=== PATIENT | female | born 1955 | race Caucasian/White ===

== ENCOUNTER 2017-02-17 10:34 | Observation (INO) | payer OTHER ==
[~2017-02-17] VITALS: Ht 157.5 cm; Wt 55.4 kg
[~2017-02-17 10:34] MED LIST: ATOR-22 PO; CLON0.5T3 PO; KLN5X PO; SENNTAB23 PO; TOPI100T20 PO; TYLER650 PO; VENL150C56 PO
[2017-02-17] MEDS ORDERED: SODIUM CHLORIDE 0.9% 1000ML 1,000 ML IV STA (10:59)
[2017-02-17] MEDS ORDERED: SODIUM CHLORIDE 0.9% 500ML 500 ML IV STA (10:59)
--- NOTE | 2017-02-17 11:07 | EMERGENCY ROOM VISIT NOTE ---
History Report prepared by Jill: Krysten Renee Under the Supervision of: Dr. Kaiden Wilson M.D. First contact with patient: 10:52 Chief Complaint: REFERRED BY DOCTOR Stated Complaint: SENT BY History of Present Illness The patient is a 61 year old female who presents to the Emergency Room with complaints of persistent weakness over the past several days. Per nursing notes , the patient has been complaining of chest pain, diaphoresis, shortness of breath, and right sided weakness. They note that the patient has been drooling. Nursing notes report that the patient has been in bed for the past two days and lost control of her bowels in her bed. Nursing notes additionally report nausea. Nursing notes report that the patient had taken nitroglycerin for her chest pain. The patient denies any excessive alcohol use. She states that she was just started on Klonopin. The patient reports a subjective fever and chills. She denies any vomiting. The patient states that she was at her PCP's office today and was sent to the emergency department for further evaluation and treatment. She reports a decrease in appetite, noting that she has not eaten since last Tuesday. She reports a history of a previous stroke in 2011. The patient denies taking any medication to overdose. She denies feeling dehydrated. Source of History: patient, nursing staff Onset: past several days Position: other (global) Quality: other (weakness) Timing: other (persistent) Associated Symptoms: + fevers, + chills, + diaphoresis, + neck pain, + chest pain, + SOB, + nausea, + back pain, No vomiting Note: Associated Symptoms: decrease in appetite Review of Systems See HPI for pertinent positives & negatives. A total of 10 systems reviewed and were otherwise negative. Past Medical & Surgical Medical Problems: (1) Anxiety (2) Arthritis (3) Bone spur removed from foot (4) CVA/TIA (5) Depression (6) GERD (gastroesophageal reflux disease) (7) History of back fracture (8) Hyperlipidemia (9) Kidney disease (10) Repair of cervical vertebra fracture (11) Syncope and collapse Family History Cancer FH: heart disease Hypertension Seizures Social History Smoking Status: Current Every Day Smoker Alcohol Use: none Marital Status: Housing Status: lives with family Occupation Status: disabled Current/Historical Medications Scheduled Clonazepam (Klonopin), 1 MG PO HS Diclofenac Sodium (Topical) (Voltaren 1% Top Gel), 2 GM EXT BID Estrogens, Conjugated (Premarin), 1 GM PV 2XWK Fluticasone Propionate (Nasal) (Flonase Allergy Relief), 2 SPRAYS MANUEL DAILY Gabapentin (Gabapentin), 300 MG PO BID Lisinopril (Lisinopril), 2.5 MG PO DAILY Sennosides-Docusate Sodium (Senokot S), 1 TAB PO HS Topiramate (Topamax), 50 MG PO DAILY Venlafaxine Hcl (Effexor Extended Rel), 150 MG PO DAILY Scheduled PRN Albuterol Hfa (Ventolin Hfa), 2 PUFFS INH Q6H PRN for SOB/Wheezing Alprazolam (Xanax), 1 TAB PO TID PRN for Anxiety Hydrocodone/Acetaminophen 5MG/325MG ([place] 5MG/325MG), 1 TABLET PO Q6 PRN for Pain Sumatriptan Succinate (Imitrex), 50 MG PO PRN PRN for Migraine Allergies Coded Allergies: Iodinated Diagnostic Agents (Verified Allergy, Severe, ANAPHYLAXIS, ) Physical Exam Vital Signs Date Time Temp Pulse Resp B/P (MAP) Pulse Ox O2 Delivery O2 Flow Rate FiO2 02/17/17 13:45 64 151/77 97 Room Air 02/17/17 12:13 62 02/17/17 12:02 Room Air 02/17/17 11:59 62 20 151/77 02/17/17 10:40 36.4 67 18 118/59 96 Room Air Physical Exam GENERAL: Patient is in no acute distress. HEENT: No acute trauma, normocephalic atraumatic, mucous membranes moist, no nasal congestion, no scleral icterus. NECK: No stridor, no adenopathy, no meningismus, trachea is midline. LUNGS: Clear to auscultation bilaterally, no wheeze, no rhonchi, breath sounds equal. HEART: Without murmurs gallops or rubs, regular rate and rhythm. ABDOMEN: Soft, nontender, bowel sounds positive, no hernias, no peritonitis. EXTREMITIES: No cyanosis or edema, full range of motion of all the joints without pain or difficulty, no signs for acute trauma. NEUROLOGIC: Oriented x 3, no acute motor or sensory deficits, no focal weakness. Extremity tremor noted, which is apparently baseline, no cerebellar deficits or pronator drift, no speech slur or facial droop. SKIN: Dark color to the skin. No rash, no jaundice, no diaphoresis. Medical Decision & Procedures ER Provider Diagnostic Interpretation: Radiology results as stated below per my review and radiologist interpretation: CHEST ONE VIEW PORTABLE HISTORY: 61 years-old Female chest pain COMPARISON: Portable chest radiograph 06/04/2013 TECHNIQUE: Portable upright AP view of the chest FINDINGS: Cardiomediastinal and hilar silhouettes are within normal limits. No pneumothorax, pleural effusion, focal airspace consolidation or overt pulmonary edema. The bones are grossly intact. IMPRESSION: No acute cardiopulmonary process. The above report was generated using voice recognition software. It may contain grammatical, syntax or spelling errors. Electronically signed by: Ross Galvez M.D. 02/17/2017 11:16 AM Dictated Date/Time: 02/17/2017 11:[address] CT DOSE: 537.48 mGy.cm HISTORY: Stroke TECHNIQUE: Multiaxial CT images of the head were performed without the use of intravenous contrast. Automated exposure control was utilized for this study. A dose lowering technique was utilized adhering to the principles of ALARA. Comparison: None. Findings: The paranasal sinuses and mastoid air cells are clear. The calvarium and skull base are intact. The ventricles and sulci are within normal limits. There is no mass, hematoma, midline shift, or acute infarct. Impression: No acute intracranial abnormality. Laboratory Results 02/17/17 11:16 Red Blood Count 4.20, Mean Corpuscular Volume 87.1, Mean Corpuscular Hemoglobin 29.8, Mean Corpuscular Hemoglobin Concent 34.2, Mean Platelet Volume 8.3, Neutrophils (%) (Auto) 53.7, Lymphocytes (%) (Auto) 34.6, Monocytes (%) (Auto) 7.2, Eosinophils (%) (Auto) 3.8, Basophils (%) (Auto) 0.5, Neutrophils # (Auto) 3.29, Lymphocytes # (Auto) 2.12, Monocytes # (Auto) 0.44, Eosinophils # (Auto) 0.23, Basophils # (Auto) 0.03 02/17/17 11:16 Test 02/17/17 11:16 02/17/17 11:30 02/17/17 13:37 White Blood Count 6.12 K/uL (4.8-10.8) Red Blood Count 4.20 M/uL (4.2-5.4) Hemoglobin 12.5 g/dL (12.0-16.0) Hematocrit 36.6 % (37-47) Mean Corpuscular Volume 87.1 fL (80-100) Mean Corpuscular Hemoglobin 29.8 pg (25-34) Mean Corpuscular Hemoglobin Concent 34.2 g/dl (32-36) Platelet Count 314 K/uL (130-400) Mean Platelet Volume 8.3 fL (7.4-10.4) Neutrophils (%) (Auto) 53.7 % Lymphocytes (%) (Auto) 34.6 % Monocytes (%) (Auto) 7.2 % Eosinophils (%) (Auto) 3.8 % Basophils (%) (Auto) 0.5 % Neutrophils # (Auto) 3.29 K/uL (1.4-6.5) Lymphocytes # (Auto) 2.12 K/uL (1.2-3.4) Monocytes # (Auto) 0.44 K/uL (0.11-0.59) Eosinophils # (Auto) 0.23 K/uL (0-0.5) Basophils # (Auto) 0.03 K/uL (0-0.2) RDW Standard Deviation 42.7 fL (36.4-46.3) RDW Coefficient of Variation 13.3 % (11.5-14.5) Immature Granulocyte % (Auto) 0.2 % Immature Granulocyte # (Auto) 0.01 K/uL (0.00-0.02) Prothrombin Time 10.3 SECONDS (9.0-12.0) Prothromb Time International Ratio 1.0 (0.9-1.1) Activated Partial Thromboplast Time 24.5 SECONDS (21.0-31.0) Partial Thromboplastin Ratio 0.9 Anion Gap 4.0 mmol/L (3-11) Est Creatinine Clear Calc Drug Dose 38.9 ml/min Estimated GFR () 56.5 Estimated GFR (Non- 48.7 BUN/Creatinine Ratio 12.0 (10-20) Calcium Level 9.1 mg/dl (8.5-10.1) Total Bilirubin 0.3 mg/dl (0.2-1) Direct Bilirubin 0.1 mg/dl (0-0.2) Aspartate Amino Transf (AST/SGOT) 16 U/L (15-37) Alanine Aminotransferase (ALT/SGPT) 18 U/L (12-78) Alkaline Phosphatase 85 U/L (45-117) Total Creatine Kinase 85 U/L (26-192) Creatine Kinase MB 1.5 ng/ml (0.5-3.6) Creatine Kinase MB Ratio 1.8 (0-3.0) Troponin I < 0.015 ng/ml (0-0.045) Total Protein 7.1 gm/dl (6.4-8.2) Albumin 3.7 gm/dl (3.4-5.0) Thyroid Stimulating Hormone (TSH) 1.470 uIu/ml (0.300-4.500) Free Thyroxine 0.92 ng/dl (0.80-1.60) Salicylates Level 2.8 mg/dl (2.8-20) Acetaminophen Level 4 ug/ml (10-30) Ethyl Alcohol mg/dL < 3.0 mg/dl (0-3) Urine Color YELLOW Urine Appearance CLEAR (CLEAR) Urine pH 5.0 (4.5-7.5) Urine Specific [place] 1.016 (1.000-1.030) Urine Protein NEG (NEG) Urine Glucose (UA) NEG (NEG) Urine Ketones NEG (NEG) Urine Occult Blood NEG (NEG) Urine Nitrite NEG (NEG) Urine Bilirubin NEG (NEG) Urine Urobilinogen NEG (NEG) Urine Leukocyte Esterase NEG (NEG) Bedside Glucose 93 mg/dl (70-90) Urine Opiates Screen POS (NEG) Urine Methadone, Qualitative NEG (NEG) Urine Barbiturates NEG (NEG) Urine Phencyclidine (PCP) Level NEG (NEG) Ur Amphetamine/Methamphetamine NEG (NEG) MDMA (Ecstasy) Screen NEG (NEG) Urine Benzodiazepines Screen NEG (NEG) Urine Cocaine Metabolite NEG (NEG) Urine Marijuana (THC) NEG (NEG) Laboratory results reviewed by me. Medications Administered Medications (Trade) Dose Ordered Sig/Rick Route Start Time Stop Time Status Last Admin Dose Admin Sodium Chloride 500 ml @ 999 mls/hr Q31M STAT IV 02/17/17 10:59 02/17/17 11:29 DC 02/17/17 11:33 999 MLS/HR Sodium Chloride 1,000 ml @ 200 mls/hr Q5H STAT IV 02/17/17 10:59 02/17/17 15:58 02/17/17 12:01 200 MLS/HR ECG Indication: weakness Rate (beats per minute): 65 Rhythm: sinus rhythm Findings: 1st degree AV block, nonspecific-ST abn (Lateral), other (old septal infarct) Comparison ECG Date: 03/01/14 Change: no significant change ED Course 1054: The patient was evaluated in room A2. A complete history and physical exam was performed. 1059: Ordered Sodium Chloride 1000 ml @ 200 mls/hr IV, Sodium Chloride 500 ml @ 999 mls/hr IV. 1234: I reevaluated the patient and she is resting. I discussed the exam findings with her and her family and I discussed the treatment plan. They verbalized complete understanding and agreement. The patient will be evaluated for further treatment. 1243: I discussed the patients case with Tad Johnson PA-C. She is going to evaluate the patient for further treatment. Medical Decision The patient is a 61 year old 61 who presents to the ED with complaints of weakness. Differential diagnoses considered include Stroke, psychosis, dehydration, electrolyte imbalance, anemia, infection, intracranial bleeding, UTI, liver or renal failure, cardiac ischemia, dysrhythmia, overdose. There is no leukocytosis or concerning anemia. No significant electrolyte abnormality, kidney failure or hepatitis. The patient appears to be in a euthyroid state. EKG shows a sinus rhythm with some older changes, no acute ischemia. EKG is unchanged compared to previous. Chest film does not show pneumonia or CHF. There was no mediastinal widening. Brain CT showed no acute bleed or mass effect. Urine tox showed opiates. Aspirin, Tylenol and alcohol levels were basically undetectable. Urinalysis does not show infection. On exam, the patient had some tremor and shakiness to her extremities but there was no focal neurologic deficit. No speech slurring or facial droop. She was awake and alert. She was not toxic, she was not febrile. The patient received IV saline, she has done well, she has been resting but is easily arousable. I cannot explain the change in mental status. She has been lying in bed for 2 days, she has lost her bowel continence in bed. She was seen by her primary care provider today and noted to be drooling. Right now, there are no focal neurologic findings. I do not feel comfortable with discharge home. I do think a further workup in the hospital is warranted. At this point, the cause for her mental status change is unclear. I did speak to the patient and to case management. The on-call hospitalist was consulted. Consults Time Called: 1240 Consulting Physician: Tad Johnson PA-C Returned Call: [phone] I discussed the patients case with Tad Johnson PA-C. She is going to evaluate the patient for further treatment. Impression Primary Impression: Change in mental status Additional Impression: Weakness Scribe Attestation The scribe's documentation has been prepared under my direction and personally reviewed by me in its entirety. I confirm that the note above accurately reflects all work, treatment, procedures, and medical decision making performed by me. Departure Information Dispostion Being Evaluated By Hospitalist Referrals Umesh Gabriel D.O. (PCP) Stroke History Time Last Known Well 2 days ago Stroke t-PA Criteria Reviewed Does NOT meet criteria for t-PA Reason t-PA Not Given Treatment not indicated Problem Qualifiers
--- NOTE | 2017-02-17 11:17 | DIAGNOSTIC IMAGING REPORT ---
CHEST ONE VIEW PORTABLE HISTORY: 61 years-old Female chest pain COMPARISON: Portable chest radiograph 06/04/2013 TECHNIQUE: Portable upright AP view of the chest FINDINGS: Cardiomediastinal and hilar silhouettes are within normal limits. No pneumothorax, pleural effusion, focal airspace consolidation or overt pulmonary edema. The bones are grossly intact. IMPRESSION: No acute cardiopulmonary process. The above report was generated using voice recognition software. It may contain grammatical, syntax or spelling errors. Electronically signed by: Ross Galvez M.D. 02/17/2017 11:16 AM Dictated Date/Time: 02/17/2017 11:15 AM
[2017-02-17 11:34] LABS: BASO % 0.5 %; BASO ABS # 0.03 K/uL (0-0.2); COMPLETE YES; EOS % 3.8 %; HEMATOCRIT 36.6 % (37-47); IG% 0.2 %; LYMPH % 34.6 %; LYMPH ABS # 2.12 K/uL (1.2-3.4); MEAN CELL VOLUME 87.1 fL (80-100); MEAN CORPUSCULAR HEMOGLOBIN 29.8 pg (25-34); MEAN CORPUSCULAR HGB CONC 34.2 g/dl (32-36); MEAN PLATELET VOLUME 8.3 fL (7.4-10.4); MONO % 7.2 %; NEUT % 53.7 %; PLATELET COUNT 314 K/uL (130-400); WHITE BLOOD COUNT 6.12 K/uL (4.8-10.8)
[2017-02-17 11:42] LABS: URINE APPEARANCE CLEAR (CLEAR); URINE BILIRUBIN NEG (NEG); URINE COLOR YELLOW; URINE NITRITE NEG (NEG); URINE SPECIFIC GRAVITY 1.016 (1.000-1.030); UROBILINOGEN NEG (NEG); ZZURINE CULT IF INDIC CATH NO
[2017-02-17 11:45] LABS: BLOOD UREA NITROGEN 14 mg/dl (7-18); CALCIUM 9.1 mg/dl (8.5-10.1); CARBON DIOXIDE 29 mmol/L (21-32); CHLORIDE 110 mmol/L (98-107); GLUCOSE 89 mg/dl (70-99); PARTIAL THROMBOPLASTIN RATIO 0.9; POTASSIUM 3.5 mmol/L (3.5-5.1); PROTHROMBIN TIME (PATIENT) 10.3 SECONDS (9.0-12.0); SODIUM 143 mmol/L (136-145)
[2017-02-17 11:46] LABS: MANUAL MICROSCOPIC REQUIRED? NO; REVIEW REQ? NO
--- NOTE | 2017-02-17 11:48 | DIAGNOSTIC IMAGING REPORT ---
HEAD CT NONCONTRAST CT DOSE: 537.48 mGy.cm HISTORY: Stroke symptoms. TECHNIQUE: Multiaxial CT images of the head were performed without the use of intravenous contrast. Automated exposure control was utilized for this study. A dose lowering technique was utilized adhering to the principles of ALARA. Comparison: Head CT 08/01/2012. Findings: The paranasal sinuses and mastoid air cells are clear. The calvarium and skull base are intact. The ventricles and sulci are within normal limits. There is no mass, hematoma, midline shift, or acute infarct. Small hypodensity within the left parietal periventricular white matter remains unchanged and likely represents microvascular ischemic change. Impression: No significant change compared to the prior study. No acute intracranial abnormality. Electronically signed by: Brad Lu M.D. 02/17/2017 11:58 AM Dictated Date/Time: 02/17/2017 11:47 AM
[2017-02-17 11:57] LABS: ALKALINE PHOSPHATASE 85 U/L (45-117); ALT/SGPT 18 U/L (12-78); AST/SGOT 16 U/L (15-37); CKMB/CK RATIO 1.8 (0-3.0); MAGNESIUM 2.3 mg/dl (1.8-2.4)
[2017-02-17 12:26] LABS: BENZODIAZEPINE, URINE NEG (NEG); COCAINE,URINE NEG (NEG); PHENCYCLIDINE, URINE NEG (NEG)
[2017-02-17] MEDS ORDERED: SUMA50TA15 PO (12:54)
[2017-02-17] MEDS ORDERED: CLON1TAB3 PO (12:54)
[2017-02-17] MEDS ORDERED: TPM/50 PO (12:54)
[2017-02-17] MEDS ORDERED: QUET1TAB30 PO (12:54)
[2017-02-17] MEDS ORDERED: HYDR-5688 PO (12:54)
[2017-02-17] MEDS ORDERED: VENL75CA PO (12:54)
[2017-02-17] MEDS ORDERED: EFFSR150 PO (12:56)
[2017-02-17] MEDS ORDERED: VNTHFA/IN INH (13:41)
[2017-02-17] MEDS ORDERED: DICL1GEL12 EXT (13:41)
[2017-02-17] MEDS ORDERED: LSN25 PO (13:41)
[2017-02-17] MEDS ORDERED: SENN-65 PO (13:41)
[2017-02-17] MEDS ORDERED: ALPR0.5T PO (13:41)
[2017-02-17] MEDS ORDERED: NRN300 PO (13:41)
[2017-02-17] MEDS ORDERED: FLUT0.15 NAE (13:41)
[2017-02-17] MEDS ORDERED: PRMVC PV (13:41)
[2017-02-17] MEDS ORDERED: IV FLUIDS COMPLETED PRN (14:30)
--- NOTE | 2017-02-17 14:43 | History and Physical ---
History & Physical Date & Time of Service: Feb 17, 2017 at 13:41 Chief Complaint: Sent By Primary Care Physician: Umesh Gabriel D.OAbiel History of Present Illness Source: patient, family (granddaughter at bedside), clinic records This is a 61 y/o female with PMH of HTN, HL, CKD stage III, panic disorder, PTSD , depression, psychosis, and other problems listed below who was sent to the ED by Dr. Keller for chest pain with subsequent syncope. Patient is a vague historian. Patient reports 6 days ago she had episode of chest pain, points to substernal area, lasting 10 minutes while in her home sorting jewelry. No heavy exertion before the episode. States she went onto the porch and fell to her knees crying. Denies SOB at that time. States her found her, but she was unable to speak because she was "about to pass out". Her gave one of his nitro tabs. States she subsequently "passed out" from Tuesday through Tuesday morning when she awoke (4 days ago). She told her not to call a physician because she did not want to come to the hospital. Pt states on awakening Tuesday she noticed right arm and leg weakness. Her granddaughter states from that time has slowed/ slurred speech, increased forgetfulness, possible increase in her chronic right arm tremor. Has chronic blurred vision without acute change. 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 States she is not eating well over past few days. Denies issues using the restroom. Pt was seen by Dr. Keller in clinic today and was sent to ER for further evaluation. Denies alcohol use. Admits to occasional marijuana use. Denies recent change in medication. States she is taking her meds as prescribed. Denies similar episodes in the past. Past Medical/Surgical History Medical Problems: (1) Anxiety Status: Chronic (2) Arthritis Status: Chronic (3) Bone spur removed from foot Status: Resolved (4) Cervical disc disease Status: Chronic (5) CKD (chronic kidney disease), stage III Status: Chronic (6) Depression Status: Chronic (7) GERD (gastroesophageal reflux disease) Status: Chronic (8) Hyperlipidemia Status: Chronic (9) Hypertension Status: Chronic (10) Kidney mass Status: Chronic (11) Psychosis Status: Chronic (12) PTSD (post-traumatic stress disorder) Status: Chronic (13) Syncope and collapse Status: Resolved Surgical Problems: (1) History of back surgery Status: Chronic (2) History of carpal tunnel surgery Status: Chronic (3) S/P cholecystectomy Status: Chronic Family History Cancer FH: heart disease Hypertension Seizures Stroke FATHER ( of CVA) Social History Smoking Status: Current Every Day Smoker (approximately 3/4 ppd) Alcohol Use: none Drug Use: marijuana Marital Status: Housing status: lives with significant other Occupational Status: employed Allergies Coded Allergies: Iodinated Diagnostic Agents (Verified Allergy, Severe, ANAPHYLAXIS, ) Home Medications Scheduled Clonazepam (Klonopin), 1 MG PO HS Diclofenac Sodium (Topical) (Voltaren 1% Top Gel), 2 GM EXT BID Estrogens, Conjugated (Premarin), 1 GM PV 2XWK Fluticasone Propionate (Nasal) (Flonase Allergy Relief), 2 SPRAYS MANUEL DAILY Gabapentin (Gabapentin), 300 MG PO BID Lisinopril (Lisinopril), 2.5 MG PO DAILY Sennosides-Docusate Sodium (Senokot S), 1 TAB PO HS Topiramate (Topamax), 50 MG PO DAILY Venlafaxine Hcl (Effexor Extended Rel), 150 MG PO DAILY Scheduled PRN Albuterol Hfa (Ventolin Hfa), 2 PUFFS INH Q6H PRN for SOB/Wheezing Alprazolam (Xanax), 1 TAB PO TID PRN for Anxiety Hydrocodone/Acetaminophen 5MG/325MG ([place] 5MG/325MG), 1 TABLET PO Q6 PRN for Pain Sumatriptan Succinate (Imitrex), 50 MG PO PRN PRN for Migraine Review of Systems Ten systems reviewed and negative except as noted in HPI. Physical Exam Vital Signs Date Time Temp Pulse Resp B/P (MAP) Pulse Ox O2 Delivery O2 Flow Rate FiO2 02/17/17 12:13 62 02/17/17 12:02 Room Air 02/17/17 11:59 62 20 151/77 02/17/17 10:40 36.4 67 18 118/59 96 Room Air General Appearance: WD/WN, no apparent distress, + pertinent finding ( granddaughter at bedside) Head: normocephalic, atraumatic Eyes: normal inspection, PERRL, EOMI, sclerae normal ENT: hearing grossly normal, pharynx normal Neck: supple, trachea midline Respiratory/Chest: lungs clear, normal breath sounds, no respiratory distress, no accessory muscle use Cardiovascular: regular rate, rhythm, no murmur Abdomen/GI: non tender, soft Back: normal inspection, + pertinent finding (no spinal tenderness) Extremities/Musculoskelatal: normal inspection, no pedal edema Neurologic/Psych: fruit packer II-XII nml as tested (facial movements symmetric. speech is slow but not dysarthric. ), no motor/sensory deficits, alert, oriented x 3, + pertinent finding (odd affect. tremor of right upper extremity upon intentional movement. ) Skin: normal color, warm/dry Diagnostics Laboratory Results Results Past 24 Hours Test 02/17/17 11:16 02/17/17 11:30 02/17/17 13:37 Range/Units White Blood Count 6.12 4.8-10.8 K/uL Red Blood Count 4.20 4.2-5.4 M/uL Hemoglobin 12.5 12.0-16.0 g/dL Hematocrit 36.6 37-47 % Mean Corpuscular Volume 87.1 80-100 fL Mean Corpuscular Hemoglobin 29.8 25-34 pg Mean Corpuscular Hemoglobin Concent 34.2 32-36 g/dl Platelet Count 314 130-400 K/uL Mean Platelet Volume 8.3 7.4-10.4 fL Neutrophils (%) (Auto) 53.7 % Lymphocytes (%) (Auto) 34.6 % Monocytes (%) (Auto) 7.2 % Eosinophils (%) (Auto) 3.8 % Basophils (%) (Auto) 0.5 % Neutrophils # (Auto) 3.29 1.4-6.5 K/uL Lymphocytes # (Auto) 2.12 1.2-3.4 K/uL Monocytes # (Auto) 0.44 0.11-0.59 K/uL Eosinophils # (Auto) 0.23 0-0.5 K/uL Basophils # (Auto) 0.03 0-0.2 K/uL RDW Standard Deviation 42.7 36.4-46.3 fL RDW Coefficient of Variation 13.3 11.5-14.5 % Immature Granulocyte % (Auto) 0.2 % Immature Granulocyte # (Auto) 0.01 0.00-0.02 K/uL Prothrombin Time 10.3 9.0-12.0 SECONDS Prothromb Time International Ratio 1.0 0.9-1.1 Activated Partial Thromboplast Time 24.5 21.0-31.0 SECONDS Partial Thromboplastin Ratio 0.9 Sodium Level 143 136-145 mmol/L Potassium Level 3.5 3.5-5.1 mmol/L Chloride Level 110 98-107 mmol/L Carbon Dioxide Level 29 21-32 mmol/L Anion Gap 4.0 3-11 mmol/L Blood Urea Nitrogen 14 7-18 mg/dl Creatinine 1.20 0.60-1.20 mg/dl Est Creatinine Clear Calc Drug Dose 38.9 ml/min Estimated GFR () 56.5 Estimated GFR (Non- 48.7 BUN/Creatinine Ratio 12.0 10-20 Random Glucose 89 70-99 mg/dl Calcium Level 9.1 8.5-10.1 mg/dl Magnesium Level 2.3 1.8-2.4 mg/dl Total Bilirubin 0.3 0.2-1 mg/dl Direct Bilirubin 0.1 0-0.2 mg/dl Aspartate Amino Transf (AST/SGOT) 16 15-37 U/L Alanine Aminotransferase (ALT/SGPT) 18 12-78 U/L Alkaline Phosphatase 85 45-117 U/L Total Creatine Kinase 85 26-192 U/L Creatine Kinase MB 1.5 0.5-3.6 ng/ml Creatine Kinase MB Ratio 1.8 0-3.0 Troponin I < 0.015 0-0.045 ng/ml Total Protein 7.1 6.4-8.2 gm/dl Albumin 3.7 3.4-5.0 gm/dl Thyroid Stimulating Hormone (TSH) 1.470 0.300-4.500 uIu/ml Free Thyroxine 0.92 0.80-1.60 ng/dl Salicylates Level 2.8 2.8-20 mg/dl Acetaminophen Level 4 10-30 ug/ml Ethyl Alcohol mg/dL < 3.0 0-3 mg/dl Urine Color YELLOW Urine Appearance CLEAR CLEAR Urine pH 5.0 4.5-7.5 Urine Specific [place] 1.016 1.000-1.030 Urine Protein NEG NEG Urine Glucose (UA) NEG NEG Urine Ketones NEG NEG Urine Occult Blood NEG NEG Urine Nitrite NEG NEG Urine Bilirubin NEG NEG Urine Urobilinogen NEG NEG Urine Leukocyte Esterase NEG NEG Bedside Glucose 93 70-90 mg/dl Urine Opiates Screen POS NEG Urine Methadone, Qualitative NEG NEG Urine Barbiturates NEG NEG Urine Phencyclidine (PCP) Level NEG NEG Ur Amphetamine/Methamphetamine NEG NEG MDMA (Ecstasy) Screen NEG NEG Urine Benzodiazepines Screen NEG NEG Urine Cocaine Metabolite NEG NEG Urine Marijuana (THC) NEG NEG Diagnostic Radiology HEAD CT NONCONTRAST CT DOSE: 537.48 mGy.cm HISTORY: Stroke symptoms. TECHNIQUE: Multiaxial CT images of the head were performed without the use of intravenous contrast. Automated exposure control was utilized for this study. A dose lowering technique was utilized adhering to the principles of ALARA. Comparison: Head CT 08/01/2012. Findings: The paranasal sinuses and mastoid air cells are clear. The calvarium and skull base are intact. The ventricles and sulci are within normal limits. There is no mass, hematoma, midline shift, or acute infarct. Small hypodensity within the left parietal periventricular white matter remains unchanged and likely represents microvascular ischemic change. Impression: No significant change compared to the prior study. No acute intracranial abnormality. CHEST ONE VIEW PORTABLE IMPRESSION: No acute cardiopulmonary process. 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 CUTTER SPUR, unclear etiology No focal deficit on examination CT head- no acute intracranial finding, + small hypodensity within the left parietal periventricular white matter remains unchanged and likely represents microvascular ischemic change EKG- sinus rhythm with 1st degree AV block- new; troponin negative; electrolytes WNL; TSH WNL; tox screen positive for opiates; CXR and UA unremarkable Prior brain MRI 06/2014 showed several foci of increased signal within periventricular and deep white matter regions primarily in region of optic radiations and occipital regions bilaterally, diagnostic considerations include chronic small vessel change of aging versus late onset demyelinating disorder Will monitor in telemetry, neuro checks, MRI brain combo Add aspirin 81 mg daily Hold opioids and psychiatric medications [facility] drug monitoring database queried- no issues identified, last Rx's filled were clonazepam (30 tabs filled 02/09) by Dr. Leal (psychiatrist) and hydrocodone-acetaminophen (45 tabs filled 12/27/16 and 02/06/2017) by Dr. Gabriel (PCP), and alprazolam ( 90 tabs filled 12/01/2016) by Dr. Leal HYPERTENSION BP is stable, hold lisinopril for now CKD STAGE III Creat is stable Avoid nephrotoxins DEPRESSION/ PANIC DISORDER/ PTSD Hold home psychiatric medications for now DVT PROPHYLAXIS Lovenox SQ FULL CODE DISPOSITION Observation to telemetry Follows with Dr. Umesh Gabriel for primary care Patient seen in collaboration with Dr. Gentile. Please see his addendum. I have seen and examined this patient with TYLER Carvalho and agree with her assessment and plan and would like to comment on the following: This is a 61 year old F with history mood disorders on several psych medications and pain medications with reported episode of 10 minute chest pain on Tuesday02/11/17 in her home while doing mildly strenuous activities and was able to ambulate outside of the house after experiencing the chest pain and then subsequently "passed out" which was witnessed by her who is not at bedside today. According to patient's story, she was then carried by her to her bed and she did not wake up until Tuesday02/13/17. She reports that her did not call for medical attention while she was passed out for 2 days. She woke up on Tuesday and noticing weakness of her right upper extremities such as having difficulties lifting her right arm to brush her hair. Does not report of headache or acute changes in her vision but reports that she has had poor vision chronically. She was then able to go to work for the next several days without further symptoms. She went to her primary care doctor and after explaining to her doctor of these events, her doctor advised her to go to the emergency room. CT head in the ED is negative for acute intracranial bleed or ischemia. On exam she has tremors of the right hand that she reports is chronic. There are no other focal neurological deficits. Heart rate is regular and lungs are clear to auscultation. Her speech is somewhat slow. Her daughter at bedside reports that patient's had problems with her memory before and that her speech is more slow recently than usual. Review of 2015 brain MRI with radiology interpretation of small vessel change of aging versus late onset demyelinating disorder. Review of EKG on admission shows NJ interval > 200 ms and may be new onset first degree heart block. Initial troponin negative It is unclear at this time whether patient may have had a cardiac event or neurological event especially since even took place days ago. Trending troponins is unlikely to be diagnostic at this time since patient is not having chest pain now. Will place on observation for telemetry monitoring in case there are arrhythmia's with serial EKGs in regards to trending NJ interval or QTC intervals. Will hold psychotropic medications that may prolong QTc. Will send for brain MRI to rule out stroke vs demyelinating disease. Other differentials include substance use as cause of syncope VTE Prophylaxis VTE Risk Assessment Done? Y/N: Yes Risk Level: Low
[2017-02-17 14:50] VITALS: O2SAT 100; Ht 157.5 cm; Wt 55.4 kg
[2017-02-17] MEDS ORDERED: ASPIRIN 81 MG CHEW PO STA (15:02)
[2017-02-17 15:46] VITALS: BP 143/67; PULSE 64; TEMP 36.3; O2SAT 99
[2017-02-17] MEDS ORDERED: GADAVIST IV PRN (17:30)
--- NOTE | 2017-02-17 17:45 | DIAGNOSTIC IMAGING REPORT ---
BRAIN COMBO CLINICAL HISTORY: 61 years-old Female presenting with syncope, TIAs, chest pain. TECHNIQUE: Multisequence, multiplanar MR imaging of the brain was performed before and after the administration of intravenous contrast. IV contrast: 5 mL of Gadavist. COMPARISON: CT head from 02/17/2017 and MRI brain from 07/15/2014. FINDINGS: Ventricles and sulci normal in size. Foci of abnormal T2/FLAIR hyperintensity in the subcortical white matter primarily in the parieto-occipital regions. This is unchanged from prior exam. No mass effect or midline shift. No hemorrhage or acute territorial infarct. No extra-axial fluid collection. T2 skull base flow voids preserved. No abnormal parenchymal enhancement. Bone marrow signal intensity within the calvarium within normal limits. IMPRESSION: 1. No acute intracranial abnormality. No abnormal enhancement. 2. Suspected chronic small vessel ischemic change, unchanged from prior exam. Electronically signed by: Keon Dowell M.D. 02/17/2017 5:44 PM Dictated Date/Time: 02/17/2017 5:39 PM
[2017-02-17 19:40] VITALS: BP 127/70; PULSE 84; TEMP 36.4; O2SAT 98
[2017-02-17 20:00] VITALS: O2SAT 98
[2017-02-17] MEDS: ENOXAPARIN 40 MG/0.4 ML SYR SQ SCH (20:46)
[2017-02-18] VITALS (7 sets, daily range): BP systolic 95–157; BP diastolic 56–95; PULSE 62–76; TEMP 36.7–37.1; O2SAT 97–100
[2017-02-18] MEDS: ASPIRIN 81 MG ECTAB PO SCH (08:01)
[2017-02-18] MEDS: NSS + 20MEQ KCL 1000ML 1,000 ML IV SCH ×2 (08:45→20:47)
--- NOTE | 2017-02-18 09:02 | ECHOCARDIOGRAM REPORT ---
*NOTICE TO RECEIVING LIBERTARIAN AGENCY This information is strictly Confidential and protected under [place] law. [place] law prohibits you from making any further disclosure of this information unless further disclosure is expressly permitted by the written consent of the person to whom it pertains or is authorized by law. A general authorization for the release of medical or other information is not sufficient for this purpose. Hospital accepts no responsibility if the information is made available to any other person, INCLUDING THE PATIENT. Interpretation Summary * Name: ARNULFO LEO Study Date: 02/18/2017 06:51 AM BP: 114/47 mmHg * Patient Location: [facility] HR: 61 * : 1955 (M/d/yyyy) Gender: Female Height: 62 in * Age: 61 yrs Ethnicity: CA Weight: 120 lb * Ordering Physician: Patti Carvalho * Referring Physician: Self, Referred * Performed By: Flori Easley RDCS * * Reason For Study: Syncope, rule out stroke * BSA: 1.5 m2 * The study was technically adequate. * There is no comparison study available. * -- Conclusions -- * Ejection Fraction = 50-55%. * The left ventricular wall motion is normal. * The interatrial septum is intact with no evidence for an atrial septal defect. * The aortic valve is trileaflet. * Mild to moderate aortic regurgitation. Procedure Details * A complete two-dimensional transthoracic echocardiogram was performed (2D, M-mode, Doppler and color flow Doppler). Left Ventricle * The left ventricle is normal in size. * There is no thrombus. * There is normal left ventricular wall thickness. * Ejection Fraction = 50-55%. * Left ventricular systolic function is normal. * The left ventricular wall motion is normal. Right Ventricle * The right ventricle is normal size. * The right ventricular systolic function is normal as assessed by tricuspid annular plane systolic excursion (TAPSE) (normal >1.5 cm). Atria * The left atrial size is normal. * Right atrial size is normal. * The interatrial septum is intact with no evidence for an atrial septal defect. * Injection of contrast documented no interatrial shunt. Mitral Valve * The mitral valve is normal. * There is no mitral valve stenosis. * There is trace mitral regurgitation. Tricuspid Valve * The tricuspid valve is normal. * There is no tricuspid stenosis. * There is trace tricuspid regurgitation. * Doppler findings do not suggest pulmonary hypertension. Aortic Valve * The aortic valve is trileaflet. * Aortic stenosis is absent. * Mild to moderate aortic regurgitation. Pulmonic Valve * The pulmonary valve is inadequately visualized, but the Doppler data is adequate for interpretation. * There is no pulmonic valvular stenosis. * Trace pulmonic valvular regurgitation. Great Vessels * The aortic root is normal size. Pericardium/Pleural * There is no pericardial effusion. Great Vessels * Normal inferior vena cava diameter and respiratory variation suggests normal central venous pressure. Left Ventricular Diastolic Function * Pulse wave TDI of the anterior and posterior mitral annulas demonstrates normal LV relaxation MMode 2D Measurements and Calculations IVSd 0.80 cm LVIDd 4.0 cm LVIDs 2.9 cm LVPWd 0.84 cm IVS/LVPW 0.95 FS 28.4 % EDV(Teich) 70.8 ml ESV(Teich) 31.6 ml EF(Teich) 55.4 % EDV(cubed) 64.9 ml ESV(cubed) 23.8 ml EF(cubed) 63.4 % LV mass(C)d 97.6 grams LV mass(C)dI 63.4 grams/m\S\2 SV(Teich) 39.2 ml SI(Teich) 25.5 ml/m\S\2 SV(cubed) 41.1 ml SI(cubed) 26.7 ml/m\S\2 Ao root diam 2.7 cm Ao root area 5.7 cm\S\2 LA dimension 2.7 cm asc Aorta Diam 3.0 cm LA/Ao 0.99 LVOT diam 2.0 cm LVOT area 3.0 cm\S\2 LVAd ap4 22.2 cm\S\2 LVLd ap4 7.2 cm EDV(MOD-sp4) 57.6 ml EDV(sp4-el) 58.0 ml LVAs ap4 14.2 cm\S\2 LVLs ap4 6.4 cm ESV(MOD-sp4) 27.8 ml ESV(sp4-el) 26.9 ml EF(MOD-sp4) 51.8 % EF(sp4-el) 53.6 % LVAd ap2 19.6 cm\S\2 LVLd ap2 7.0 cm EDV(MOD-sp2) 44.4 ml EDV(sp2-el) 46.7 ml LVAs ap2 12.5 cm\S\2 LVLs ap2 6.5 cm ESV(MOD-sp2) 20.6 ml ESV(sp2-el) 20.3 ml EF(MOD-sp2) 53.5 % EF(sp2-el) 56.4 % LVLd %diff -3.42 % EDV(MOD-bp) 50.4 ml LVLs %diff 2.1 % ESV(MOD-bp) 24.3 ml EF(MOD-bp) 51.7 % SV(MOD-sp4) 29.9 ml SI(MOD-sp4) 19.4 ml/m\S\2 SV(MOD-sp2) 23.8 ml SI(MOD-sp2) 15.5 ml/m\S\2 SV(MOD-bp) 26.1 ml SI(MOD-bp) 17.0 ml/m\S\2 SV(sp4-el) 31.1 ml SI(sp4-el) 20.2 ml/m\S\2 SV(sp2-el) 26.3 ml SI(sp2-el) 17.1 ml/m\S\2 Doppler Measurements and Calculations MV E max erick 56.6 cm/sec MV A max erick 63.6 cm/sec MV E/A 0.89 MV dec time 0.18 sec Ao V2 max 101.2 cm/sec Ao max PG 4.1 mmHg Ao max PG (full) 2.1 mmHg LISETH(V,A) 2.1 cm\S\2 LISETH(V,D) 2.1 cm\S\2 AI max erick 414.3 cm/sec AI max PG 68.7 mmHg AI dec slope 124.9 cm/sec\S\2 AI P1/2t 972.0 msec LV V1 max PG 2.0 mmHg LV V1 max 70.6 cm/sec PA V2 max 61.1 cm/sec PA max PG 1.5 mmHg PA acc slope 320.3 cm/sec\S\2 PA acc time 0.19 sec PI max erick 128.1 cm/sec PI max PG 6.6 mmHg PI dec slope 190.6 cm/sec\S\2 PI P1/2t 196.9 msec TR max erick 184.8 cm/sec PA pr(Accel) -4.33 mmHg
[2017-02-18] MEDS ORDERED: TOPIRAMATE 50 MG TAB PO ONE (12:30)
[2017-02-18] MEDS ORDERED: VENLAFAXINE HCL XR 150 MG CAPXR PO ONE (12:30)
[2017-02-18] MEDS ORDERED: HYDROCODONE/ACETAMOPHEN 5/325MG TAB PO PRN (12:30)
--- NOTE | 2017-02-18 13:00 | CARDIOLOGY CONSULTATION ---
DATE OF CONSULTATION: 02/18/2017 REASON FOR CONSULTATION: Chest discomfort. REFERRING PHYSICIAN: Dr. Lazara Garcia MD CHIEF COMPLAINT ON ADMISSION: Chest discomfort. HISTORY OF PRESENT ILLNESS: Ms. Dennis is a 61-year-old female, who presented to the Emergency Department with persistent weakness. She had been seen by her PCP, complaining of chest pain, diaphoresis, shortness of breath and right-sided weakness approximately 1 week ago. The patient is a poor historian. Her is present at bedside as well. He is also unclear on many of the details of history of present illness. 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 The pain was sharp and stabbing and became severe. She ran to her front porch, where she began to weep. She states that she ran past to her , who eventually walked out onto the porch. He gave the patient one nitroglycerin under her tongue. She then became extremely weak. She did not lose consciousness according to both the patient and her . He helped her to the couch, although she was able to support her weight. She states she was on the couch for several hours and fell asleep. She then returned to her bedroom in the evening and returned to the couch in the morning. She felt quite weak and fatigued over the next few days. There has been no recurrent chest discomfort. 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 She denies taking any extra pain medication or additional antianxiety medication listed below. Denies personal history of coronary artery disease, congestive heart failure, diabetes, rheumatic fever as a child, or peripheral vascular disease. Other symptoms she reports are weakness, positional lightheadedness, vertigo, neck discomfort, intermittent diaphoresis, intermittent chills, intermittent fevers, intermittent shortness of breath, intermittent nausea, and intermittent back pain. REVIEW OF SYSTEMS: The pertinent positives are noted above, comprehensive 10-system review is otherwise negative. PAST MEDICAL HISTORY: 1. Chronic cervical spine and thoracic spine pain, on chronic narcotic pain medication. 2. Anxiety disorder. 3. Arthritis. 4. ? TIA. 5. Depression. 6. GERD. 7. Spinal fracture. 8. Dyslipidemia. 9. CKD. 10. Syncope. PAST SURGICAL HISTORY: 1. Bone spur removal. 2. Spinal surgery. 3. Cervical spine surgery. FAMILY HISTORY: Negative for premature CAD or sudden cardiac . SOCIAL HISTORY: Current every day smoker. Occupation status listed as disabled; however, reports working at a truck stop. HOME MEDICATIONS: 1. Klonopin 1 mg at bedtime. 2. Voltaren topical gel twice daily. 3. Premarin ointment twice weekly. 4. Flonase 2 sprays daily. 5. Neurontin 300 mg twice daily. 6. Lisinopril 2.5 mg daily. 7. Senokot 1 tablet at bedtime. 8. Topamax 50 mg daily. 9. Effexor 150 mg daily. 10. Albuterol as needed. 11. Xanax t.i.d. as needed. 12. Hydrocodone/acetaminophen 1 tablet q. 6 hours as needed. 13. Imitrex 50 mg as needed for migraine. ALLERGIES: LISTED TO IODINATED CONTRAST AGENTS. ECG on admission, sinus rhythm with nonspecific ST-T wave abnormality. Unchanged when compared to prior study. Repeat ECG performed today also demonstrates nonspecific T-wave abnormality. Resting 2D transthoracic echo: Ejection fraction of 50%-55%, mild to moderate aortic regurgitation, intact interatrial septum, and no regional wall motion abnormalities. MRI of the brain: No acute intracranial abnormality, suspected chronic small vessel ischemic change. Finding unchanged compared to the prior study. Chest x-ray: No acute cardiopulmonary process. LABORATORY DATA: Cardiac enzymes are negative x2 sets. Sodium is 143, potassium 3.5, chloride 110, CO2 is 29, BUN is 14, and creatinine is 1.20. TSH is 1.470. LFTs within normal limits. White blood cell count 6.12, hemoglobin is 12.5, and platelet count is 314. INR is 1.0. Tox screen is positive for opiates. Telemetry monitoring demonstrates sinus rhythm, no sustained dysrhythmias. PHYSICAL EXAMINATION: VITAL SIGNS: Temperature is 36.7 degrees centigrade, pulse 65 beats per minute and regular, respiratory rate 16 breaths per minute, blood pressure 122/71 and SaO2 is 99% on room air. GENERAL: NAD, poor dentition, awake, alert and oriented x3. HEENT: Her mucous membranes are moist. There is no scleral icterus. Conjunctivae are pink. NECK: Supple. There is no JVD or HJR. No carotid bruit. HEART: Regular with a normal S1 and S2. There is no murmur, rub, or gallop. LUNGS: Clear. There are no rales, rhonchi, or wheeze. ABDOMEN: Soft and nontender. No rebound or guarding. Normal bowel sounds. EXTREMITIES: Warm and dry. There is no clubbing, cyanosis, or edema. NEUROLOGIC: Demonstrates no focal motor deficit. Cranial nerves are grossly intact. FINAL IMPRESSION: 1. A 61-year-old female presents with episode of atypical chest discomfort occurring 1 week ago. Cardiac enzymes within normal limits. There are no regional wall motion abnormalities on her resting 2D transthoracic echo. Chronic nonspecific ECG changes were stable compared to prior studies. The patient is chest pain free for 6 days. 2. Questionable near syncopal episode. 3. History of hypertension -- blood pressure is borderline hypotensive, lisinopril on hold. PLAN AND RECOMMENDATIONS: I had a long discussion with the patient regarding her isolated atypical episode of chest discomfort. Recommend pharmacologic, Lexiscan nuclear stress testing in the outpatient setting. She consumed an a.m. meal, therefore testing will not be completed on an inpatient basis at this time. Agree with the holding lisinopril and continue monitoring blood pressure. Consider polypharmacy as potential etiology of episode of near syncope. No other medication changes from a cardiovascular perspective. No further inpatient testing at this time. Thank you for allowing me to take part in the care of your patient. MICHELA
--- NOTE | 2017-02-18 20:26 | DIAGNOSTIC IMAGING REPORT ---
CERVICAL WITHOUT CONTRAST HISTORY: 61 years-old Female chronic neck pain with radiation into the right upper extremity. Associated numbness. Follow-up exam. COMPARISON: CT cervical spine 07/15/2014 TECHNIQUE: Multiplanar multisequence MRI of the cervical spine was obtained without contrast. FINDINGS: The large [id number] localizer images demonstrate no gross abnormality of the head, neck or thorax. The imaged posterior fossa structures are within normal limits. Modic type I endplate changes are present at C5-C6. No acute compression deformity, fracture or marrow replacing process. The imaged paraspinal structures demonstrate no acute abnormality. The axial images are motion degraded which limits the study. Partial bony fusion is again seen at C2-C3 with focal kyphotic curvature redemonstrated at this interspace. There is effacement of the ventral thecal sac at T2-T3 without significant central canal narrowing. Mild uncovertebral spurring is also present. C3-C4: Mild intervertebral disc space narrowing with broad based posterior disc bulge, facet arthropathy and uncovertebral spurring without significant central canal or foraminal narrowing. Unchanged. C4-C5: Moderate intervertebral disc space narrowing with broad-based posterior disc bulge and right lateral recess disc osteophyte complex formation, slightly progressed in the interval. Additionally, there is facet arthrosis and uncovertebral spurring. There is mild central canal, moderate right lateral recess and moderate right foraminal narrowing. Mild left foraminal narrowing is present. These findings have slightly progressed from comparison. C5-C6: Mild to moderate intervertebral disc space narrowing and facet arthrosis is noted in conjunction with broad-based posterior disc bulge. Disc osteophyte complex formation of the left lateral recess causes mild left lateral recess and moderate left foraminal narrowing. There is effacement of the ventral thecal sac without high-grade central canal narrowing. Right foramen is generally patent. Mild progression from prior study. C6-C7: Mild intervertebral disc space narrowing with left lateral recess/foraminal disc osteophyte complex formation causing moderate left lateral recess and moderate left foraminal narrowing. Right foramen is generally patent. Please note that this level is very motion degraded. C7-T1: No central canal or foraminal narrowing. IMPRESSION: 1. Limited study secondary to patient motion. 2. Within the limitations of the exam, there is progression of discogenic degenerative changes at the C4-C5 and C5-C6 levels. At C4-C5, there is resultant mild central canal, moderate right lateral recess and moderate right foraminal narrowing. 3. At C5-C6 degenerative changes cause effacement of the ventral thecal sac with mild left lateral recess and moderate left foraminal narrowing. 4. Partial bony fusion at C2-C3, unchanged. The above report was generated using voice recognition software. It may contain grammatical, syntax or spelling errors. Electronically signed by: Ross Galvez M.D. 02/18/2017 8:25 PM Dictated Date/Time: 02/18/2017 8:13 PM
--- NOTE | 2017-02-18 20:30 | Progress Note ---
Medicine Progress Note Date & Time of Visit: Feb 18, 2017 at 20:25. Subjective seen with at bedside states she feels better denies chest pain, dyspnea, palpitations, dizziness denies right sided weakness but does report chronic neck pain radiating to the right arm no other symptoms Objective Last 8 Hrs Date Time Temp Pulse Resp B/P (MAP) Pulse Ox O2 Delivery O2 Flow Rate FiO2 02/18/17 20:00 36.9 74 16 122/74 (90) 97 Room Air 02/18/17 20:00 Room Air 02/18/17 16:00 Room Air Physical Exam: General- oriented x 3, not in distress, speaks in sentences with no effort Head- atraumatic Eyes- EOMI, anicteric Neck- supple, no JVD, no adenopathy (+) poor ROM due to pain mild tenderness on the posterior aspect Lungs- clear breath sounds bilaterally Heart- regular rhythm; no murmur, no murmurs Abdomen- normal bowel sounds, soft, nontender, no masses or hepatosplenomegaly Extremities- no pretibial edema, no calf tenderness; peripheral pulses intact Neuro- alert, oriented x 3; PERRL, EOMI; no facial palsy; no dysarthria; motor 5 /5 bilaterally; sensation 100% on all ext (+) right arm mild tremor: chronic per patient Skin- warm & dry Laboratory Results: Last 24 Hours Test 02/18/17 09:04 Troponin I < 0.015 ng/ml Assessment & Plan EPISODE OF CHEST PAIN/ POSSIBLE SYNCOPE with subsequent RIGHT SIDED WEAKNESS Episode occurred several days [employer], unclear etiology No focal deficit on examination CT head- no acute intracranial finding, + small hypodensity within the left parietal periventricular white matter remains unchanged and likely represents microvascular ischemic change EKG- sinus rhythm with 1st degree AV block- new; troponin negative; electrolytes WNL; TSH WNL; tox screen positive for opiates; CXR and UA unremarkable Prior brain MRI 06/2014 showed several foci of increased signal within periventricular and deep white matter regions primarily in region of optic radiations and occipital regions bilaterally, diagnostic considerations include chronic small vessel change of aging versus late onset demyelinating disorder -- MRI Brain no acute findings will order MRI cervical spine to r/o nerve compression -- Cardiology consulted recommend outpatient stress test HYPERTENSION BP is stable, hold lisinopril for now CKD STAGE III Creat is stable DEPRESSION/ PANIC DISORDER/ PTSD resume usual medications DVT PROPHYLAXIS Lovenox SQ FULL CODE DISPOSITION pending PT OT ordered Current Inpatient Medications: Current Inpatient Medications Medications (Trade) Dose Ordered Sig/Rick Route Start Time Stop Time Status Last Admin Dose Admin Aspirin (Ecotrin Tab) 81 mg DAILY PO 02/18/17 09:00 03/20/17 08:59 02/18/17 08:01 81 MG Miscellaneous (Iv Fluids Completed) 1 ea PRN PRN N/A 02/17/17 14:30 02/17/18 14:29 Enoxaparin Sodium (Lovenox Inj) 40 mg Q24H SQ 02/17/17 21:00 03/19/17 20:59 02/17/17 20:46 40 MG Gadobutrol (Gadavist) 5 mmol UD PRN IV 02/17/17 17:30 02/21/17 17:29 Potassium Chloride/Sodium Chloride 1,000 ml @ 75 mls/hr [id number] IV 02/18/17 07:45 03/20/17 07:44 02/18/17 08:45 75 MLS/HR Clonazepam (Klonopin Tab) 1 mg HS PO 02/18/17 21:00 03/20/17 20:59 Gabapentin (Neurontin Cap) 300 mg BID PO 02/18/17 21:00 03/20/17 20:59 Acetaminophen/ Hydrocodone Bitart ([place] 5/325 Tab) 1 tab Q6 PRN PO 02/18/17 12:30 03/04/17 12:29 Topiramate (Topamax Tab) 50 mg DAILY PO 02/19/17 09:00 03/21/17 08:59 Venlafaxine HCl (effeXOR EXTENDED REL CAP) 150 mg DAILY PO 02/19/17 09:00 03/21/17 08:59
[2017-02-18] MEDS: GABAPENTIN 300 MG CAP PO SCH (20:46)
[2017-02-18] MEDS: ENOXAPARIN 40 MG/0.4 ML SYR SQ SCH (20:47)
[2017-02-18] MEDS ORDERED: CLONAZEPAM 1 MG TAB PO SCH (21:00)
[2017-02-19] VITALS: O2SAT 98
[2017-02-19 04:00] VITALS: BP 112/67; PULSE 61; TEMP 36.7; O2SAT 100; O2SAT 98
[2017-02-19 08:00] VITALS: O2SAT 100
[2017-02-19 08:06] VITALS: BP_SYST 120; BP_SYST 131; BP_SYST 143; BP_DIAS 78; BP_DIAS 81; BP_DIAS 82; PULSE 61; TEMP 36.3; O2SAT 100
[2017-02-19] MEDS: ASPIRIN 81 MG ECTAB PO SCH (08:20)
[2017-02-19] MEDS: GABAPENTIN 300 MG CAP PO SCH (08:21)
[2017-02-19] MEDS ORDERED: VENLAFAXINE HCL XR 150 MG CAPXR PO SCH (09:00)
[2017-02-19] MEDS ORDERED: TOPIRAMATE 50 MG TAB PO SCH (09:00)
[2017-02-19] MEDS ORDERED: CEFUROXIME AXETIL 250 MG TAB PO SCH ×2 (09:00→21:00)
[2017-02-19] MEDS: NSS + 20MEQ KCL 1000ML 1,000 ML IV SCH (09:06)
[2017-02-19 11:52] VITALS: BP 124/78; PULSE 74; TEMP 36.8; O2SAT 99
[2017-02-19] MEDS ORDERED: CEFUROXIME AXETIL 250 MG TAB PO ONE (13:40)
--- NOTE | 2017-02-19 13:49 | Progress Note ---
Medicine Progress Note Date & Time of Visit: Feb 19, 2017 at 13:43. Subjective patient seen resting in bed, brighter states she feels better today denies recurrence of chest pain neck pain is improved, no right sided weakness reports some dysuria, specks of blood in her urine, no fever/chills/back pain/ nausea denies any other new symptoms states she is back to her baseline, ambulates with no problems no other symptoms ] Objective Last 8 Hrs Date Time Temp Pulse Resp B/P (MAP) Pulse Ox O2 Delivery O2 Flow Rate FiO2 02/19/17 12:00 Room Air 02/19/17 11:52 36.8 74 16 124/78 (93) 99 Room Air 02/19/17 08:06 36.3 61 18 143/82 (102) 100 131/81 (98) 120/78 (92) 02/19/17 08:00 100 Room Air 02/19/17 08:00 Room Air Physical Exam: General- oriented x 3, not in distress, speaks in sentences with no effort Eyes- anicteric Neck- supple, no JVD better ROM Lungs- clear breath sounds bilaterally, no rales/wheezes Heart- regular rhythm; no murmur, no murmurs Abdomen- normal bowel sounds, soft, nontender Extremities- no pretibial edema, no calf tenderness; peripheral pulses intact Neuro- alert, oriented x 3; no gross focal deficits Skin- warm & dry Laboratory Results: Date/Time Source Procedure Growth Status 02/19/17 04:05 Urine , Clean Catch Urine Culture Pending Received Assessment & Plan EPISODE OF ATYPICAL CHEST PAIN/ POSSIBLE SYNCOPE RIGHT SIDED WEAKNESS, likely from CERVICAL RADICULOPATHY, CERVICALGIA -- Episode occurred several days [employer], unclear etiology No focal deficit on examination CT head- no acute intracranial finding, + small hypodensity within the left parietal periventricular white matter remains unchanged and likely represents microvascular ischemic change EKG- sinus rhythm with 1st degree AV block- new; troponin negative; electrolytes WNL; TSH WNL; tox screen positive for opiates; CXR and UA unremarkable Prior brain MRI 06/2014 showed several foci of increased signal within periventricular and deep white matter regions primarily in region of optic radiations and occipital regions bilaterally, diagnostic considerations include chronic small vessel change of aging versus late onset demyelinating disorder -- MRI Brain no acute findings MRI cervical spine: IMPRESSION: 1. Limited study secondary to patient motion. 2. Within the limitations of the exam, there is progression of discogenic degenerative changes at the C4-C5 and C5-C6 levels. At C4-C5, there is resultant mild central canal, moderate right lateral recess and moderate right foraminal narrowing. 3. At C5-C6 degenerative changes cause effacement of the ventral thecal sac with mild left lateral recess and moderate left foraminal narrowing. 4. Partial bony fusion at C2-C3, unchanged. -- Acute Coronary Syndrome ruled out Cardiology consulted- Dr. Atkins recommend outpatient Lexiscan stress test -- consider referral to Pain Management or Ortho for cervicalgia DYSURIA -- possible early UTI -- also reports specks of blood in the Urine -- UA unremarkable -- empiric Cefuroxime 250mg po BID HYPERTENSION BP is stable resume Lisinopril CKD STAGE III Crea stable DEPRESSION/ PANIC DISORDER/ PTSD resume usual medications DVT PROPHYLAXIS Lovenox SQ FULL CODE DISPOSITION d/c home today ff up with PCP in 3-5 days Current Inpatient Medications: Current Inpatient Medications Medications (Trade) Dose Ordered Sig/Rick Route Start Time Stop Time Status Last Admin Dose Admin Aspirin (Ecotrin Tab) 81 mg DAILY PO 02/18/17 09:00 03/20/17 08:59 02/19/17 08:20 81 MG Miscellaneous (Iv Fluids Completed) 1 ea PRN PRN N/A 02/17/17 14:30 02/17/18 14:29 Enoxaparin Sodium (Lovenox Inj) 40 mg Q24H SQ 02/17/17 21:00 03/19/17 20:59 02/18/17 20:47 40 MG Gadobutrol (Gadavist) 5 mmol UD PRN IV 02/17/17 17:30 02/21/17 17:29 Potassium Chloride/Sodium Chloride 1,000 ml @ 75 mls/hr [id number] IV 02/18/17 07:45 03/20/17 07:44 02/19/17 09:06 75 MLS/HR Clonazepam (Klonopin Tab) 1 mg HS PO 02/18/17 21:00 03/20/17 20:59 02/18/17 20:47 1 MG Gabapentin (Neurontin Cap) 300 mg BID PO 02/18/17 21:00 03/20/17 20:59 02/19/17 08:21 300 MG Acetaminophen/ Hydrocodone Bitart ([place] 5/325 Tab) 1 tab Q6 PRN PO 02/18/17 12:30 03/04/17 12:29 Topiramate (Topamax Tab) 50 mg DAILY PO 02/19/17 09:00 03/21/17 08:59 02/19/17 08:20 50 MG Venlafaxine HCl (effeXOR EXTENDED REL CAP) 150 mg DAILY PO 02/19/17 09:00 03/21/17 08:59 02/19/17 09:04 150 MG Cefuroxime Axetil (Ceftin Tab) 250 mg BID PO 02/19/17 09:00 02/24/17 08:59 02/19/17 09:04 250 MG
[2017-02-19] MEDS ORDERED: CFT250 PO (13:53)
[2017-02-19] MEDS ORDERED: ASPEC81 PO (13:53)
--- NOTE | 2017-02-19 14:00 | Discharge Instructions ---
Discharge Instructions Date of Service Feb 19, 2017. Admission Reason for Admission: Syncope And Collapse Discharge Discharge Diagnosis / Problem: ATYPICAL CHEST PAIN Discharge Goals Goal(s): Diagnostic testing, Therapeutic intervention Activity Recommendations Activity Limitations: as noted below (NO HEAVY EXERTION UNTIL RE-EVALUATED BY PRIMARY CARE PHYSICIAN) Lifting Limitations: until after follow-up appointment Exercise/Sports Limitations: until after follow-up appointment . Instructions / Follow-Up Instructions / Follow-Up PLEASE REVIEW YOUR NEW MEDICATION LIST AND FOLLOW INSTRUCTIONS CAREFULLY. CALL PRIMARY CARE PHYSICIAN OR RETURN TO ER IMMEDIATELY IF WITH RECURRENCE OF SYMPTOMS, BLOOD IN THE URINE, FEVER/CHILLS, ABDOMINAL/BACK PAIN. FOLLOW UP WITH PRIMARY CARE PHYSICIAN DR. JEAN (ASSOCIATE OF DR. NAJERA) ON TuesdayFEBRUARY 222016 AT 12:55PM. Current Hospital Diet Patient's current hospital diet: Regular Diet Discharge Diet Recommended Diet: AHA Diet (Heart Healthy) Procedures Procedures Performed: MRI OF THE CERVICAL SPINE Pending Studies Studies pending at discharge: no Medical Emergencies . Who to Call and When: Medical Emergencies: If at any time you feel your situation is an emergency, please call 911 immediately. . Non-Emergent Contact Non-Emergency issues call your: Primary Care Provider Call Non-Emergent contact if: you have a fever, your pain is not controlled, your pain is worsening, you have any medication questions ( ) . . "Provider Documentation" section prepared by Tom Callahan. . VTE Core Measure Inpt VTE Proph given/why not?: [facility]CD's [place] Drug Monitoring Program Search Results: patient reviewed within database, no issues identified
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
[2017-02-19 14:17] VITALS: BP 124/78; PULSE 74; TEMP 36.8; O2SAT 99
[2017-02-19 21:41] LABS: COD UR NEGATIVE NG/ML (CUTOFF=50); HYDROCOD UR 395 NG/ML (CUTOFF=50); HYDROMOR UR NEGATIVE NG/ML (CUTOFF=50); MORPHINE UR NEGATIVE NG/ML (CUTOFF=50); NORHYDROCODONE CONF UR 3110 NG/ML (CUTOFF=50); OXYMORPH UR NEGATIVE NG/ML (CUTOFF=50)
== END 2017-02-19 15:11 | disposition home or self-care (01) ==
LOC: C.EDB 10:35 → C.MED 13:37 → ENRESERV 14:33
PROVIDERS: ADMIT Hospitalist; ATTEND Internal Medicine
DX: R07.89 Other chest pain (principal); R53.1 Weakness; R55 Syncope and collapse; K21.9 Gastro-esophageal reflux disease without esophagitis; I12.9 Hypertensive chronic kidney disease with stage 1 through stage 4 chronic kidney disease, or unspecified chronic kidney disease; N18.3 Chronic kidney disease, stage 3 (moderate); F43.10 Post-traumatic stress disorder, unspecified; R30.0 Dysuria; F32.9 Major depressive disorder, single episode, unspecified; Z79.899 Other long term (current) drug therapy; E78.5 Hyperlipidemia, unspecified; F17.200 Nicotine dependence, unspecified, uncomplicated; Z90.49 Acquired absence of other specified parts of digestive tract; Z86.73 Personal history of transient ischemic attack (TIA), and cerebral infarction without residual deficits; Z82.49 Family history of ischemic heart disease and other diseases of the circulatory system; Z82.3 Family history of stroke

== ENCOUNTER → 2017-07-25 | Outpatient (CLI) | payer OTHER ==
[~2017-07-25] MED LIST changes: +ALPR0.5T PO; +ASPEC81 PO; -ATOR-22 PO; +CFT250 PO; -CLON0.5T3 PO; +CLON1TAB3 PO; +EFFSR150 PO; +FLUT0.15 NAE; +HYDR-5688 PO; -KLN5X PO; +LSN25 PO; +NRN300 PO; +PRMVC PV; +SENN-65 PO; -SENNTAB23 PO; -TOPI100T20 PO; +TPM/50 PO; -TYLER650 PO; -VENL150C56 PO; +VNTHFA/IN INH
--- NOTE | 2017-07-25 11:48 | DIAGNOSTIC IMAGING REPORT ---
RENAL ULTRASOUND CLINICAL HISTORY: Renal neoplasm. Lower back pain. COMPARISON STUDY: CT of the abdomen and pelvis June 04, 2013 and MRI of the abdomen May 26, 2016. TECHNIQUE: Sonography of the kidneys and the urinary bladder was performed. FINDINGS: The right kidney measures 9.5 x 4.1 x 3.6 cm and the left measures 10.3 x 4.5 x 4.4 cm. There is no right hydronephrosis. There has been interval development of mild left hydronephrosis of indeterminate etiology. Both ureteral jets were identified. The previously described right renal lesion may be visualized on this exam. This may correspond to a 1 cm echogenic lesion shown on this exam. If so, this lesion is similar to prior MRI of May 26, 2016 when allowing for differences in technique. Incidental note is made of an echogenic right hepatic lobe lesion shown to represent hemangiomas on prior MRI. IMPRESSION: 1. Interval development of mild left hydronephrosis of indeterminate etiology. 2. 1 cm echogenic right renal lesion. While not definitive, this likely reflects the previously described lesion and if so, is unchanged since earlier studies. Electronically signed by: Paulie Baron M.D. 07/25/2017 11:47 AM Dictated Date/Time: 07/25/2017 11:40 AM
== END | disposition home or self-care (01) ==
LOC: C.ULTR 10:48
PROVIDERS: ATTEND Urology
DX: D49.519 Neoplasm of unspecified behavior of unspecified kidney (principal); M54.5 Low back pain

== ENCOUNTER → 2017-09-05 | Outpatient (CLI) | payer OTHER ==
--- NOTE | 2017-09-05 10:21 | DIAGNOSTIC IMAGING REPORT ---
CT SCAN OF THE ABDOMEN AND PELVIS WITHOUT IV CONTRAST CLINICAL HISTORY: Renal neoplasm. COMPARISON STUDY: Abdominal CT dated 06/04/2013. Abdominal MRI dated 05/26/2016. Renal ultrasound dated 07/25/2017. TECHNIQUE: CT scan of the abdomen and pelvis is performed from the lung bases to the proximal femora. Images are reviewed in the axial, sagittal, and coronal planes. IV contrast was not administered for this examination. Note that the examination is suboptimal without IV contrast. A dose lowering technique was utilized adhering to the principles of ALARA. CT DOSE: 335.67 mGycm FINDINGS: Lung bases: The heart is normal in size and without pericardial effusion. The lung bases are clear. Liver: The unenhanced liver is normal in size, contour, and attenuation. There is no intrahepatic biliary ductal dilatation. A 3.1 cm low-attenuation lesion in the right hepatic lobe seen on image #75 is unchanged over multiple prior studies. This was previously characterized as a benign hemangioma. Gallbladder: Surgically absent noting clips in the gallbladder fossa. Spleen: Normal in size and attenuation. Pancreas: Unremarkable. Adrenal glands: Unremarkable. Kidneys: The unenhanced kidneys demonstrate mild cortical atrophy and are without hydronephrosis. There are no renal calculi identified. A 9 mm fat attenuation lesion in the interpolar right kidney is unchanged from 2013 and consistent with a small angiomyolipoma. A 1.4 cm indeterminant contour deforming lesion is seen in the right upper pole on image #111. Small renal cysts identified on prior studies are not visualized without IV contrast. Abdominal vasculature: The abdominal aorta is normal in course and caliber noting mild to moderate atherosclerotic calcification. Bowel: There are scattered colonic diverticula without CT evidence of acute diverticulitis. No bowel obstruction is seen. The appendix is well-visualized and normal. Peritoneum: There is no intraperitoneal free air or abdominal ascites. There is a small fat-containing umbilical hernia. Lymphadenopathy: None. Pelvic viscera: The bladder, uterus, and adnexa are normal as visualized. Skeletal structures: The skeletal structures are osteopenic. There is minimal lumbosacral spondylosis. A bone island is again noted in the left ilium. No lytic or blastic lesions are seen. IMPRESSION: 1. There is unchanged appearance of a 1.4 cm contour deforming lesion in the mid to upper pole of the right kidney dating back to at least 2012. This was shown to demonstrate postcontrast enhancement on prior examinations. A low-grade neoplasm is not excluded. 2. 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 3. Additional findings as above. Electronically signed by: Kaiden Elizabeth M.D. 09/05/2017 10:20 AM Dictated Date/Time: 09/05/2017 10:09 AM
== END | disposition home or self-care (01) ==
LOC: C.CTS 09:35
PROVIDERS: ATTEND Urology
DX: D49.519 Neoplasm of unspecified behavior of unspecified kidney (principal)

== ENCOUNTER 2022-03-22 09:12 | Observation (INO) ==
[2022-03-22] MEDS ORDERED: SODIUM CHLORIDE 0.9% 1000ML 1,000 ML IV SCH (09:45)
[2022-03-22] MEDS ORDERED: SODIUM CHLORIDE 0.9% 500 ML IV SCH (09:45)
[2022-03-22] MEDS ORDERED: DEXTROSE 50% 50 ML SYRINGE IV ONE (09:53)
[2022-03-22] MEDS ORDERED: ONDANSETRON INJ 2 MG/ML 2 ML VIAL IV STA (09:53)
--- NOTE | 2022-03-22 09:58 | XRay Report ---
XR chest 1V portable HISTORY: 66 years-old Female weakness acute weakness COMPARISON: Chest radiograph 11/23/2019. TECHNIQUE: Portable AP view of the chest FINDINGS: Cardiomediastinal and hilar silhouettes are within normal limits. No pneumothorax, pleural effusion, airspace consolidation or overt pulmonary edema. Degenerative changes of the shoulders and spine. Vineet gical clips of the right upper quadrant abdomen. IMPRESSION: No acute process. ACT 112: Negative or not required by law. The above report was generated using voice recognition software. It may contain grammatical, syntax o r spelling errors. Electronically signed by: Kole Galvez M.D. 03/22/2022 9:57 AM
[2022-03-22 10:21] LABS: Basophils # (auto) 0.06 K/uL (0-0.2); Basophils % (auto) 0.6 %; Eosinophils # (auto) 0.18 K/uL (0-0.50); Eosinophils % (auto) 1.9 %; Hematocrit (blood only) 39.4 % (34.1-44.9); Hemoglobin 13.8 g/dl (12.0-16.0); Immature Granulocytes # (auto) 0.05 K/uL (0.00-0.02); Immature Granulocytes % (auto) 0.5 %; Lymphocytes % (auto) 20.1 %; Mean Corpuscular Hemoglobin 29.2 pg (25.0-34.0); Mean Corpuscular Volume 83.3 fL (80.0-100.0); Monocytes # (auto) 0.75 K/uL (0.24-0.82); Monocytes % (auto) 7.9 %; Platelet Count 437 K/uL (130-400); RDW Coefficient of Variation 13.3 % (11.5-14.5); RDW Standard Deviation 40.4 fL (36.4-46.3); Red Blood Count 4.73 M/uL (3.93-5.22); White Blood Count 9.44 K/ul (4.8-10.8)
[2022-03-22 10:44] LABS: Albumin Globulin Ratio 1.5 (0.9-2); Albumin Level 4.1 gm/dl (3.4-5.0); BUN Creatinine Ratio 8.9 (10-20); Bilirubin,Total 0.5 mg/dl (0.2-1.0); Calcium 9.9 mg/dl (8.5-10.1); Creatinine Clr Calc Pharmacy 35.6 ml/min; Est GFR (African American) 52.9 ml/min; Est GFR (Non-African American) 45.7 ml/min; Globulin 2.7 gm/dl (2.5-4.0); Magnesium 1.9 mg/dl (1.7-2.4); Potassium 2.8 mmol/L (3.5-5.1); Total Protein 6.8 gm/dl (6.0-8.3)
[2022-03-22 10:48] LABS: Troponin I High Sensitivity 6.1 pg/ml (0-14)
[2022-03-22] MEDS ORDERED: POTASSIUM CHLORIDE / WTR 10 MEQ/100 ML PLCT IV ONE ×2 (10:55→16:46)
--- NOTE | 2022-03-22 11:49 | Emergency Department Note ---
Impression & Plan Generalized weakness, Nausea, Hypokalemia, Hypoglycemia, Abdominal pain, lower ED Provider Note INFORMANT: Patient ED PROVIDER(S): Bishnu Christopher MD CHIEF COMPLAINT: Illness PLAN: Disposition: Admitted Condition: Good Outpatient prescription management: none Referral: None MEDICAL DECISION MAKING: Patient presented with a week long illness that consisted of nausea and diarrhea. She was feeling dizzy. She had no appetite. She had an IV established and was hydrated. She was treated with Zofran. She was found to be hypoglycemic and was given IV dextrose. The patient was also found to be hypokalemic on laboratory testing and this was corrected with IV potassium. Patient underwent CT imaging and was found to have a nonspecific colitis. She had an unremarkable CBC and troponin. Stool studies were ordered. Given the patient's decline and poor results treatment as an outpatient I discussed further management in the hospital. Patient and family feel comfortable. [facility] Patient was evaluated in the ER and admitted for further management Triage Nursing notes reviewed and agree them. Vital Signs: reviewed and remarkable for no significant abnormalities Differential diagnosis: Infection, dehydration, metabolic abnormality, hypo/hyperglycemia, electrolyte d isturbance, anemia, hypoxia, cardiac sources, intracerebral event, toxicologic, neurologic, as well as other pathologies. Diagnostics interpreted by me: ECG: Twelve-lead ECG reveals a sinus rhythm at 72 bpm. Poor baseline data present. Septal Q wave present. Nonspecific ST abnormality. There is possible T wave inversion laterally. No ST elevation appreciated. Cardiac Monitoring: Cardiac monitoring ordered by me: The patient was placed on continuous cardiac monitoring and observed. It revealed a normal sinus rhythm at 75 beats per minute without ectopy or evidence of dysrhythmia. Imaging studies: Chest x-ray. Findings: A chest x-ray was performed and revealed no pneumothorax, effusion, infiltrate, pulmonary edema, free air under the diaphragm, or wide mediastinum. Impression: No acute disease. CT scan as noted below HPI: The patient is a 66year old female who presents to the Emergency Room with complaints of illness. This started last week and is worsening. The patient also notes the following associated symptoms, generalized weakness, lower abdominal pain, feeling dizzy, poor appetite. Patient was seen by primary physician. Patient states a CT scan was performed because she was having the lower abdominal pain and was told that she had diverticulitis. The patient has been prescribed metronidazole for relieving factors. Current pain is rated as 0/10. Pt denies LOC, headache, fevers, chills, diaphoresis, visual changes, neck pain, chest pain, breathing difficulties, vomiting, back pain, melena, hematochezia, urinary symptoms, numbness, , lymphadenopathy, rash, or other complaints. ROS: See above HPI for pertinent positives & negatives. A total of 10 systems reviewed and were otherwise negative. PAST MEDICAL HISTORY:See Below , hypertension PAST SURGICAL HISTORY:See Below, FAMILY HISTORY:See Below SOCIAL HISTORY:See Below, smoker HOME MEDICATIONS:See Below ALLERGIES:See Below VITALS:See Below PHYSICAL EXAMINATION: GENERAL: Awake, alert, uncomfortable-appearing, in no distress HENT: Normocephalic, atraumatic. Oropharynx unremarkable. EYES: Normal conjunctiva. Sclera non-icteric. NECK: Inspection normal. Non-tender. Supple. No nuchal rigidity. FROM. No mass es. RESPIRATORY: Clear to auscultation. No wheezes. No rales. Normal respiratory effort. CARDIAC: Normal rate. Normal rhythm. No murmurs. No rubs. Extremities warm and well perfused. Pulses equal. No JVD. GI: Soft, non-distended. Mild right lower quadrant tenderness to palpation. No rebound or guarding. No masses. RECTAL: Deferred. MUSCULOSKELETAL: Atraumatic. Chest examination reveals no tenderness. The back is symmetrical on inspection without obvious abnormality. There is no CVA tenderness to palpation. No joint edema. LOWER EXTREMITIES: Calves are equal size bilaterally and non-tender. No edema. No discoloration. NEURO: Normal sensorium. Generally weak but no focal sensory or motor deficits noted. SKIN: No rash or jaundice noted. Bishnu Christopher MD Past Med/Surg History Medical History Adverse reaction to contrast media Anxiety Anxiety and depression Arthritis Cervical disc disease Chronic back pain CKD (chronic kidney disease), stage III Colitis Depression GERD (gastroesophageal reflux disease) Hyperlipidemia Hypertension Psychosis PTSD (post-traumatic stress disorder) S/P colonoscopy Tobacco use Surgical History History of back surgery History of carpal tunnel surgery S/P cholecystectomy Social History Smoking Status: Current every day smoker Tobacco Type: Cigarettes Preferred Language: [place] Feels Safe at Home: Yes Allergies Allergies Allergy/AdvReac Type Severity Reaction Status Date / Time Iodinated Contrast Media Allergy Severe ANAPHYLAXIS Verified 03/22/22 12:54 Home Meds Home Medications Medication Instructions Recorded Confirmed gabapentin 300 mg capsule 300 mg PO HS #60 caps 03/14/19 03/22/22 lisinopril 2.5 mg tablet 2.5 mg PO HS #90 tabs 03/14/19 03/22/22 venlafaxine 150 mg 150 mg PO DAILY 03/14/19 03/22/22 capsule,extended release 24 hr risperidone 0.5 mg tablet 0.5 mg PO DIRECTED PRN 05/22/19 03/22/22 irritability alprazolam 0.5 mg tablet 0.5 mg PO HS PRN Anxiety 11/07/19 03/22/22 albuterol sulfate 90 mcg/actuation 2 puff inhalation Q6H PRN Wheezing 11/09/19 03/22/22 aerosol inhaler fluticasone propionate 50 2 spray intranasal DAILY 11/09/19 03/22/22 mcg/actuation nasal spray,suspension (Flonase Allergy Relief) gabapentin 100 mg capsule 100 mg PO QAM 11/09/19 03/22/22 (Neurontin) topiramate 25 mg tablet 25 mg PO HS 10/05/21 03/22/22 Results & Data (ED) Vital Signs Vital Signs - 24 hr 03/22/22 09:21 03/22/22 10:20 03/22/22 11:13 Temperature 36.3 C L Temperature Source Temporal Artery Scan Pulse Rate 98 H 74 Pulse Rate [Right Finger] 70 Respiratory Rate 18 16 18 Respiratory Effort / Characteristics Non-Labored Respiratory Depth Normal Blood Pressure 120/76 Blood Pressure [Left Arm] 130/82 Blood Pressure Mean 90 Blood Pressure Mean [Left Arm] 98 Pulse Oximetry 100 100 100 Oxygen Delivery Method Room Air Room Air Room Air Sepsis Recent Fever Within 48 Hours No Sepsis New/Unexplained Change in Mental Status No Sepsis Action Taken by Nursing No Action Required 03/22/22 13:00 03/22/22 14:45 Temperature Temperature Source Pulse Rate 75 Pulse Rate [Right Finger] 75 Respiratory Rate 18 16 Respiratory Effort / Characteristics Respiratory Depth Blood Pressure 107/82 Blood Pressure [Left Arm] 136/84 Blood Pressure Mean Blood Pressure Mean [Left Arm] 101 Pulse Oximetry 100 100 Oxygen Delivery Method Room Air Room Air Sepsis Recent Fever Within 48 Hours Sepsis New/Unexplained Change in Mental Status Sepsis Action Taken by Nursing Laboratory Data Result diagrams: 03/22/22 09:45 03/22/22 09:45 Lab Results 03/22/22 03/22/22 03/22/22 Range/Units 09:45 09:45 09:45 WBC 9.44 (4.8-10.8) K/ul RBC 4.73 (3.93-5.22) M/uL Hgb 13.8 (12.0-16.0) g/dl Hct 39.4 (34.1-44.9) % MCV 83.3 (80.0-100.0) fL MCH 29.2 (25.0-34.0) pg MCHC 35.0 (32.0-36.0) g/dL RDW Std Deviation 40.4 (36.4-46.3) fL RDW Coeff of Rowena 13.3 (11.5-14.5) % Plt Count 437 H (130-400) K/uL MPV 9.0 L (9.4-12.3) fL Immature Gran % (Auto) 0.5 % Neut % (Auto) 69.0 % Lymph % (Auto) 20.1 % Grimes % (Auto) 7.9 % Eos % (Auto) 1.9 % Baso % (Auto) 0.6 % Neut # (Auto) 6.50 (1.4-6.5) K/uL Lymph # (Auto) 1.90 (1.2-3.4) K/uL Grimes # (Auto) 0.75 (0.24-0.82) K/uL Eos # (Auto) 0.18 (0-0.50) K/uL Baso # (Auto) 0.06 (0-0.2) K/uL Immature Gran # (Auto) 0.05 H (0.00-0.02) K/uL Sodium 140 (136-145) mmol/L Potassium 2.8 L (3.5-5.1) mmol/L Chloride 105 (98-107) mmol/L Carbon Dioxide 20 L (21-32) mmol/L Anion Gap 15 H (3-11) BUN 11 (6-23) mg/dl Creatinine 1.23 H (0.6-1.2) mg/dl Est Cr Clr Drug Dosing 35.6 ml/min Est GFR ( Amer) 52.9 ml/min Est GFR (Non-Af Amer) 45.7 ml/min BUN/Creatinine Ratio 8.9 L (10-20) Glucose 56 L (70-99(Fasting)) mg/dl POC Glucose (70-99) mg/dl Calcium 9.9 (8.5-10.1) mg/dl Magnesium 1.9 (1.7-2.4) mg/dl Total Bilirubin 0.5 (0.2-1.0) mg/dl AST 19 (13-39) U/L ALT 13 (7-52) U/L Alkaline Phosphatase 62 (34-104) U/L Troponin I High Sens 6.1 (0-14) pg/ml Total Protein 6.8 (6.0-8.3) gm/dl Albumin 4.1 (3.4-5.0) gm/dl Globulin 2.7 (2.5-4.0) gm/dl Albumin/Globulin Ratio 1.5 (0.9-2) TSH 0.866 (0.300-4.500) uIu/ml Stl C. cayetanensis PCR (NotDetected) Stool Rotavirus A PCR (NotDetected) Stl Adenov F 40/41 PCR (NotDetected) Stool Astrovirus (PCR) (NotDetected) Stool Campylobacter PCR (NotDetected) Stl C. diff Tox A/B PCR (NotDetected) Stool Cryptosporidium PCR (NotDetected) Stl E.coli Shiga Tox PCR (NotDetected) Stl Enterotoxigenic E PCR (NotDetected) Stool EPEC (PCR) (NotDetected) Stool EAEC (PCR) (NotDetected) Stl E. histolytica PCR (NotDetected) Stool Giardia Lamblia PCR (NotDetected) Stool Salmonella PCR (NotDetected) Stool Sapovirus (PCR) (NotDetected) Stl P. shigelloides PCR (NotDetected) Stl Shigella/EIEC PCR (NotDetected) St Y.enterocolitica PCR (NotDetected) Stool Vibrio (PCR) (NotDetected) Stl Vibrio cholerae PCR (NotDetected) Stl Norovirus GI/GII PCR (NotDetected) SARS-CoV-2, RNA, NAAT (NEGATIVE) 03/22/22 03/22/22 03/22/22 Range/Units 09:52 10:43 12:48 WBC (4.8-10.8) K/ul RBC (3.93-5.22) M/uL Hgb (12.0-16.0) g/dl Hct (34.1-44.9) % MCV (80.0-100.0) fL MCH (25.0-34.0) pg MCHC (32.0-36.0) g/dL RDW Std Deviation (36.4-46.3) fL RDW Coeff of Rowena (11.5-14.5) % Plt Count (130-400) K/uL MPV (9.4-12.3) fL Immature Gran % (Auto) % Neut % (Auto) % Lymph % (Auto) % Grimes % (Auto) % Eos % (Auto) % Baso % (Auto) % Neut # (Auto) (1.4-6.5) K/uL Lymph # (Auto) (1.2-3.4) K/uL Grimes # (Auto) (0.24-0.82) K/uL Eos # (Auto) (0-0.50) K/uL Baso # (Auto) (0-0.2) K/uL Immature Gran # (Auto) (0.00-0.02) K/uL Sodium (136-145) mmol/L Potassium (3.5-5.1) mmol/L Chloride (98-107) mmol/L Carbon Dioxide (21-32) mmol/L Anion Gap (3-11) BUN (6-23) mg/dl Creatinine (0.6-1.2) mg/dl Est Cr Clr Drug Dosing ml/min Est GFR ( Amer) ml/min Est GFR (Non-Af Amer) ml/min BUN/Creatinine Ratio (10-20) Glucose (70-99(Fasting)) mg/dl POC Glucose 62 L* 127 H (70-99) mg/dl Calcium (8.5-10.1) mg/dl Magnesium (1.7-2.4) mg/dl Total Bilirubin (0.2-1.0) mg/dl AST (13-39) U/L ALT (7-52) U/L Alkaline Phosphatase (34-104) U/L Troponin I High Sens (0-14) pg/ml Total Protein (6.0-8.3) gm/dl Albumin (3.4-5.0) gm/dl Globulin (2.5-4.0) gm/dl Albumin/Globulin Ratio (0.9-2) TSH (0.300-4.500) uIu/ml Stl C. cayetanensis PCR (NotDetected) Stool Rotavirus A PCR (NotDetected) Stl Adenov F 40/41 PCR (NotDetected) Stool Astrovirus (PCR) (NotDetected) Stool Campylobacter PCR (NotDetected) Stl C. diff Tox A/B PCR (NotDetected) Stool Cryptosporidium PCR (NotDetected) Stl E.coli Shiga Tox PCR (NotDetected) Stl Enterotoxigenic E PCR (NotDetected) Stool EPEC (PCR) (NotDetected) Stool EAEC (PCR) (NotDetected) Stl E. histolytica PCR (NotDetected) Stool Giardia Lamblia PCR (NotDetected) Stool Salmonella PCR (NotDetected) Stool Sapovirus (PCR) (NotDetected) Stl P. shigelloides PCR (NotDetected) Stl Shigella/EIEC PCR (NotDetected) St Y.enterocolitica PCR (NotDetected) Stool Vibrio (PCR) (NotDetected) Stl Vibrio cholerae PCR (NotDetected) Stl Norovirus GI/GII PCR (NotDetected) SARS-CoV-2, RNA, NAAT NEGATIVE (NEGATIVE) 03/22/22 Range/Units 13:04 WBC (4.8-10.8) K/ul RBC (3.93-5.22) M/uL Hgb (12.0-16.0) g/dl Hct (34.1-44.9) % MCV (80.0-100.0) fL MCH (25.0-34.0) pg MCHC (32.0-36.0) g/dL RDW Std Deviation (36.4-46.3) fL RDW Coeff of Rowena (11.5-14.5) % Plt Count (130-400) K/uL MPV (9.4-12.3) fL Immature Gran % (Auto) % Neut % (Auto) % Lymph % (Auto) % Grimes % (Auto) % Eos % (Auto) % Baso % (Auto) % Neut # (Auto) (1.4-6.5) K/uL Lymph # (Auto) (1.2-3.4) K/uL Grimes # (Auto) (0.24-0.82) K/uL Eos # (Auto) (0-0.50) K/uL Baso # (Auto) (0-0.2) K/uL Immature Gran # (Auto) (0.00-0.02) K/uL Sodium (136-145) mmol/L Potassium (3.5-5.1) mmol/L Chloride (98-107) mmol/L Carbon Dioxide (21-32) mmol/L Anion Gap (3-11) BUN (6-23) mg/dl Creatinine (0.6-1.2) mg/dl Est Cr Clr Drug Dosing ml/min Est GFR ( Amer) ml/min Est GFR (Non-Af Amer) ml/min BUN/Creatinine Ratio (10-20) Glucose (70-99(Fasting)) mg/dl POC Glucose (70-99) mg/dl Calcium (8.5-10.1) mg/dl Magnesium (1.7-2.4) mg/dl Total Bilirubin (0.2-1.0) mg/dl AST (13-39) U/L ALT (7-52) U/L Alkaline Phosphatase (34-104) U/L Troponin I High Sens (0-14) pg/ml Total Protein (6.0-8.3) gm/dl Albumin (3.4-5.0) gm/dl Globulin (2.5-4.0) gm/dl Albumin/Globulin Ratio (0.9-2) TSH (0.300-4.500) uIu/ml Stl C. cayetanensis PCR Not Detected (NotDetected) Stool Rotavirus A PCR Not Detected (NotDetected) Stl Adenov F 40/41 PCR Not Detected (NotDetected) Stool Astrovirus (PCR) Not Detected (NotDetected) Stool Campylobacter PCR Not Detected (NotDetected) Stl C. diff Tox A/B PCR Not Detected (NotDetected) Stool Cryptosporidium PCR Not Detected (NotDetected) Stl E.coli Shiga Tox PCR Not Detected (NotDetected) Stl Enterotoxigenic E PCR Not Detected (NotDetected) Stool EPEC (PCR) Not Detected (NotDetected) Stool EAEC (PCR) Not Detected (NotDetected) Stl E. histolytica PCR Not Detected (NotDetected) Stool Giardia Lamblia PCR Not Detected (NotDetected) Stool Salmonella PCR Not Detected (NotDetected) Stool Sapovirus (PCR) Not Detected (NotDetected) Stl P. shigelloides PCR Not Detected (NotDetected) Stl Shigella/EIEC PCR Not Detected (NotDetected) St Y.enterocolitica PCR Not Detected (NotDetected) Stool Vibrio (PCR) Not Detected (NotDetected) Stl Vibrio cholerae PCR Not Detected (NotDetected) Stl Norovirus GI/GII PCR Not Detected (NotDetected) SARS-CoV-2, RNA, NAAT (NEGATIVE) Administered Medications Sodium Chloride (Nss 1000ml) 1,000 mls @ 125 mls/hr IV .Q8H [facility] Stop: 03/22/22 17:44 Last Admin: 03/22/22 12:17 Dose: 125 mls/hr Documented By: TORREY Discontinued Medications Dextrose (Dextrose 50% 50 Ml Syringe) 25 ml IV NOW ONE Stop: 03/22/22 09:54 Last Admin: 03/22/22 10:05 Dose: 25 ml Documented By: TORREY Sodium Chloride (Nss) 500 mls @ 999 mls/hr IV .Q31M [facility] Stop: 03/22/22 10:15 Last Infusion: 03/22/22 10:45 Dose: 0 mls/hr Documented By: Admin: 03/22/22 10:05 Dose: 999 mls/hr Documented By: TORREY Potassium Chloride (K Emanuel / Wtr) 10 meq in 100 mls @ 100 mls/hr IV ONE ONE; Protocol Stop: 03/22/22 11:54 Last Infusion: 03/22/22 13:55 Dose: 0 mls/hr Documented By: Infusion: 03/22/22 12:24 Dose: 75 mls/hr Documented By: Admin: 03/22/22 12:18 Dose: 100 mls/hr Documented By: TORREY Ondansetron HCl (Ondansetron Inj 2 Mg/Ml 2 Ml Vial) 4 mg IV NOW STA Stop: 03/22/22 09:54 Last Admin: 03/22/22 10:05 Dose: 4 mg Documented By: TORREY Imaging Data Radiologist's Impression: Chest X-Ray 03/22/22 09:35 XR chest 1V portable HISTORY: 66 years-old Female weakness acute weakness COMPARISON: Chest radiograph 11/23/2019. TECHNIQUE: Portable AP view of the chest FINDINGS: Cardiomediastinal and hilar silhouettes are within normal limits. No pneumothorax, pleural effusion, airspace consolidation or overt pulmonary edema. Degenerative changes of the shoulders and spine. Surgical clips of the right upper quadrant abdomen. IMPRESSION: No acute process. ACT 112: Negative or not required by law. The above report was generated using voice recognition software. It may contain grammatical, syntax or spelling errors. Electronically signed by: Kole Galvez M.D. 03/22/2022 9:57 AM Abdomen/Pelvis CT 03/22/22 10:19 CT OF THE ABDOMEN AND PELVIS WITHOUT CONTRAST CLINICAL HISTORY: Lower abdominal pain, hx of diverticulitis. COMPARISON STUDY: CT of the abdomen and pelvis March 16, 2022. TECHNIQUE: Axial images of the abdomen and pelvis were obtained without IV contrast. Images were reviewed in the axial, sagittal, and coronal planes. Automated exposure control was utilized for the study. A dose lowering technique was utilized adhering to the principles of ALARA. FINDINGS: Lung bases are unremarkable. No pneumatosis, free air or portal gas is identified. Evaluation of the abdomen and pelvis is suboptimal on this unenhanced exam. There is probable hepatic steatosis. There is no biliary ductal dilatation status post cholecystectomy. 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 There is no hydronephrosis. Oral contrast from prior CT is present within the appendix. No evidence for acute appendicitis. The colon is recommended mildly fluid-filled. There is subtle adjacent stranding. Colonic wall thickening has mildly improved since exam Sep ber 2021. Colonic diverticulosis is noted without evidence for acute diverticulitis. There is no fluid collection is suggest an abscess. There is no ascites. Bone island within the left iliac bone is incidentally noted. IMPRESSION: 1. Findings consistent with a persistent nonspecific colitis with possible diarrheal state. Colonic wall thickening slightly decreased since prior CT. 2. Colonic diverticulosis without evidence for acute diverticulitis. 3. No evidence for acute appendicitis. ACT 112: Negative or not required by law. Electronically signed by: Paulie Baron M.D. 03/22/2022 12:08 PM Discharge Plan Visit Data Chief Complaint: Dizziness Stated Complaint: DIZZINESS, DISORIENTED ED Provider: Bishnu Christopher Discharge Problem: Generalized weakness, Nausea, Hypokalemia, Hypoglycemia, Abdominal pain, lower Discharge Instructions Interventions: ED Discharge Assessment Last Done: 03/22/22 14:45 Forms Stand Alone Forms: My [employer] Prescriptions Prescriptions: No Action lisinopril 2.5 mg tablet 2.5 mg PO HS Qty: 90 gabapentin 300 mg capsule 300 mg PO HS Qty: 60 venlafaxine 150 mg capsule,extended release 24hr 150 mg PO DAILY topiramate 25 mg tablet 25 mg PO HS risperidone 0.5 mg tablet 0.5 mg PO DIRECTED PRN (Reason: irritability) Label Comments: unsure if pt is taking. was recently filled per rx history. (08/30/19) alprazolam 0.5 mg tablet 0.5 mg PO HS PRN (Reason: Anxiety) gabapentin [Neurontin] 100 mg capsule 100 mg PO QAM albuterol sulfate 90 mcg/actuation Hfa Aerosol Inhaler 2 puff INHALATION Q6H PRN (Reason: Wheezing) fluticasone propionate [Flonase Allergy Relief] 50 mcg/actuation spray,suspension 2 spray INTRANASAL DAILY Referrals Referrals: Umesh Gabriel DO [Primary Care Provider] -
--- NOTE | 2022-03-22 12:10 | CT Scan Report ---
CT OF THE ABDOMEN AND PELVIS WITHOUT CONTRAST CLINICAL HISTORY: Lower abdominal pain, hx of diverticulitis. COMPARISON STUDY: CT of the abdomen and pelvis March 16, 2022. TECHNIQUE: Axial images of the abdomen and pelvis were obtained without IV contrast. Images were revi ewed in the axial, sagittal, and coronal planes. Automated exposure control was utilized for the edgardo dy. A dose lowering technique was utilized adhering to the principles of ALARA. FINDINGS: Lung bases are unremarkable. No pneumatosis, free air or portal gas is identified. Evaluati on of the abdomen and pelvis is suboptimal on this unenhanced exam. There is probable hepatic steatos is. There is no biliary ductal dilatation status post cholecystectomy. Unenhanced images of the splee n, adrenal glands and kidneys are unremarkable with the exception of a small angiomyolipoma within th e right kidney which is benign. There is no hydronephrosis. Oral contrast from prior CT is present wi thin the appendix. No evidence for acute appendicitis. The colon is recommended mildly fluid-filled. There is subtle adjacent stranding. Colonic wall thickening has mildly improved since exam March 16, 2022. Colonic diverticulosis is noted without evidence for acute diverticulitis. There is no flui d collection is suggest an abscess. There is no ascites. Bone island within the left iliac bone is in cidentally noted. IMPRESSION: 1. Findings consistent with a persistent nonspecific colitis with possible diarrheal state. Colonic w all thickening slightly decreased since prior CT. 2. Colonic diverticulosis without evidence for acute diverticulitis. 3. No evidence for acute appendicitis. ACT 112: Negative or not required by law. Electronically signed by: Paulie Baron M.D. 03/22/2022 12:08 PM
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
[2022-03-22 14:33] LABS: Adenovirus F 40/41 PCR Not Detected (NotDetected); Astrovirus PCR Not Detected (NotDetected); Campylobacter PCR Not Detected (NotDetected); Clostridium diff Toxin A/B PCR Not Detected (NotDetected); Cryptosporidium PCR Not Detected (NotDetected); Cyclospora cayetanensis PCR Not Detected (NotDetected); Entamoeba histolytica PCR Not Detected (NotDetected); Enteroaggregative E.coli(EAEC) Not Detected (NotDetected); Enteropathogenic E.coli (EPEC) Not Detected (NotDetected); Enterotoxigenic E.coli (ETEC) Not Detected (NotDetected); Giardia lamblia PCR Not Detected (NotDetected); Norovirus GI/GII PCR Not Detected (NotDetected); Plesiomonas shigelloides PCR Not Detected (NotDetected); Rotavirus A PCR Not Detected (NotDetected); Salmonella PCR Not Detected (NotDetected); Sapovirus PCR Not Detected (NotDetected); Shiga-like Toxin E.coli (STEC) Not Detected (NotDetected); Shigella/Enteroinvasive E.coli Not Detected (NotDetected); Vibrio cholerae PCR Not Detected (NotDetected); Vibrio species PCR Not Detected (NotDetected); Yersinia enterocolitica PCR Not Detected (NotDetected)
[2022-03-22] MEDS ORDERED: PNEUMOCOCCAL POLYSACCHARIDES 25 MCG/0.5 ML VIAL/SYR IM ONE (16:45)
[2022-03-22] MEDS ORDERED: risperiDONE 0.5 MG TABLET PO PRN (16:46)
[2022-03-22] MEDS ORDERED: MAGNESIUM HYDROXIDE SUSP 30 ML UDC PO PRN (16:46)
[2022-03-22] MEDS ORDERED: POLYETHYLENE (MIRALAX) 17 GM PACK PO PRN (16:46)
[2022-03-22] MEDS ORDERED: ONDANSETRON INJ 2 MG/ML 2 ML VIAL IV PRN (16:46)
[2022-03-22] MEDS ORDERED: ACETAMINOPHEN 325 MG TAB PO PRN (16:46)
[2022-03-22] MEDS ORDERED: POTASSIUM CHLORIDE CRTAB 20 MEQ TABCR PO STA (16:46)
[2022-03-22] MEDS ORDERED: ALUMINUM/MAGNESIUM SUSP 30 ML UDC PO PRN (16:46)
[2022-03-22] MEDS: NICOTINE 14 MG/24 HR PATCH TD SCH (17:47)
[2022-03-22] MEDS ORDERED: POTASSIUM CHLORIDE 20 MEQ/15 ML UDC PO STA (18:26)
[2022-03-22] MEDS: CIPROFLOXACIN / D5W 200 MG/100 ML BAG IV SCH (19:07)
[2022-03-22] MEDS: TOPIRAMATE 25 MG TAB PO SCH (20:20)
[2022-03-22] MEDS: HEPARIN SOD 5,000 UNIT/0.5 ML VIAL SQ SCH (20:21)
[2022-03-22] MEDS: GABAPENTIN 300 MG CAP PO SCH (20:21)
[2022-03-22] MEDS: metroNIDAZOLE 500 MG/100 ML BAG IV SCH (20:40)
[2022-03-22] MEDS: ALPRAZolam 0.5 MG TABLET PO PRN (20:48)
[2022-03-22] MEDS: lisinopril 2.5 MG TAB PO SCH (20:49)
[2022-03-23] MEDS: metroNIDAZOLE 500 MG/100 ML BAG IV SCH ×3 (03:04→19:28)
[2022-03-23 03:33] LABS: Appearance Urine Clear (Clear); Bacteria Urine Automated Negative (Negative); Bilirubin Urine Negative (Negative); Blood Urine Negative (Negative); Color Urine Yellow; Glucose Urine UA Negative (Negative); Ketones Urine 2+ (Negative); Leukocyte Esterase Urine 1+ (Negative); Nitrite Urine Negative (Negative); Protein Urine Negative (Negative); RBC Urine Automated 0-4 /hpf (0-4); Specific Gravity Urine 1.015 (1.000-1.030); Urobilinogen Urine Negative (Negative)
[2022-03-23] MEDS: CIPROFLOXACIN / D5W 200 MG/100 ML BAG IV SCH (05:12)
--- NOTE | 2022-03-23 05:51 | Electrocardiogram Report ---
Test Reason : Blood Pressure : / mmHG Vent. Rate : 072 BPM Atrial Rate : 072 BPM P-R Int : 166 ms QRS Dur : 078 ms QT Int : 408 ms P-R-T Axes : 093 006 190 degrees QTc Int : 446 ms Poor data quality, interpretation may be adversely affected Sinus rhythm Septal infarct (cited on or before 23-NOV-2019) Abnormal ECG When compared with ECG of 24-APR-2020 13:12, T wave inversion more evident in Inferolateral leads Confirmed by Tod Barboza ([id number]) on 03/23/2022 5:51:11 AM Referred By: Confirmed By:Tod Barboza
[2022-03-23 06:51] LABS: Hemoglobin 11.2 g/dl (12.0-16.0); Mean Corpuscular Hemoglobin 28.6 pg (25.0-34.0); Mean Corpuscular Volume 81.6 fL (80.0-100.0); Mean Platelet Volume 8.9 fL (9.4-12.3); Platelet Count 353 K/uL (130-400); RDW Coefficient of Variation 13.5 % (11.5-14.5); RDW Standard Deviation 39.8 fL (36.4-46.3); Red Blood Count 3.92 M/uL (3.93-5.22)
[2022-03-23 07:13] LABS: BUN Creatinine Ratio 7.3 (10-20); Calcium 8.6 mg/dl (8.5-10.1); Creatinine Clr Calc Pharmacy 40.2 ml/min; Est GFR (African American) 61.3 ml/min; Est GFR (Non-African American) 52.9 ml/min
[2022-03-23] MEDS: FLUTICASONE PROPIONATE NA SPR 16 GM BTL SCH (09:10)
[2022-03-23] MEDS: VENLAFAXINE HCL XR 150 MG CAPXR PO SCH (09:10)
[2022-03-23] MEDS: HEPARIN SOD 5,000 UNIT/0.5 ML VIAL SQ SCH ×2 (09:10→20:18)
[2022-03-23] MEDS: NICOTINE 14 MG/24 HR PATCH TD SCH (09:13)
[2022-03-23] MEDS: GABAPENTIN 100 MG CAP PO SCH (09:55)
[2022-03-23] MEDS: POTASSIUM CHLORIDE CRTAB 20 MEQ TABCR PO SCH ×2 (12:01→17:04)
[2022-03-23] MEDS ORDERED: SODIUM CHLORIDE 0.9% 1000ML 1,000 ML IV SCH (12:15)
[2022-03-23] MEDS ORDERED: PROMETHAZINE HCL 25 MG TAB PO PRN (13:33)
--- NOTE | 2022-03-23 14:57 | Hospitalist Progress Note ---
Date of Service March 23, 2022 Assessment & Plan (1) Colitis: Plan: h/o IBS on Bentyl. Nausea and abd pain symptoms for 1 month with weight loss reported. Nonspecific pancolitis seen on outpatient CT a/p and PO flagyl given without success. Repeat CT a/p yesterday reveals the colon is recommended mildly fluid-filled. There is subtle adjacent stranding. Colonic wall thickening has mildly improved since exam March 16, 2022. Colonic diverticulosis is noted without evidence for acute diverticulitis. There is no fluid collection is suggest an abscess. There is no ascites. Stool culture was negative for infection. Consult GI for assistance as patient is not feeling significantly better now. She is asking for some solid food, however. Cont current antibiotics and anti- emetics, pain medication as needed. Monitor for clinical improvement. Upon discharge may need to give an alternative to flagyl. (2) Generalized weakness: Plan: Likely a result of poor PO intake over the last month. Hypoglycemic in the ER. Nutrition consult . (3) Nausea: Plan: possibly related to colitis, however, marijuana use or medications may also be contirbuting. (4) Hypokalemia: Plan: 2/2 poor PO intake. Giving supplementation and encouraging her to eat. Upgr aded her diet today. (5) Chronic back pain: Plan: chronic pain managed with marijuana and home medications. No new changes in pain reported.. (6) Anxiety and depression: Plan: significant h/o depression. Continues on topiramate, risperidone as needed for irritability, gabapentin and Xanax. (7) Tobacco use: Plan: smokes both marijuana and cigarettes and was educated this was terrible for her health. She said it was ok for her because she had a lung doctor. Smoking cessation strongly advised. (8) DVT prophylaxis: Plan: heparin Full Code Dispo-to home when tolerating PO Morena Falk DO [facility] Hospitalist Admission and Anticipated Discharge Date Admission Date: March 22, 2022 Subjective 66 yo F presents with one month of inability to tolerate PO 2/2 severe nausea and suprapubic abdominal pain. She reports this started "out of the blue" and she does smoke "medical" marijuana along with tobacco. She has chronic back and neck pain. She reports the pain is intermittent, but there are no known triggers that make this pain worse. I asked if food makes it worse and she reiterated that she hasn't eaten anything for one month. She has a "strange- appearing" diarrhea with mucous in it but from what I can tell no blood. She doesn't knkow what her home water source is but reportedly drinks only distilled water that she buys from the store. Denies any vaginal discharge or blood. Denies any UTI symptoms. +weight loss but cannot quantify. Says her dr lied to her. She was taking flagyl but was unable tolerate this. She is very lethargic and states this is because of a lack of sleep overnight. Review of Systems Review of Systems: All systems were reviewed and negative except as indicated above and chills also reported for the past month. Physical Exam Physical Exam: CONSTITUTIONAL: WNWD, vitals as above, generally well- appearing, NAD EYES: normal conjunctivae, no scleral icterus, ENT: external ear and nose normal, poor dentition, right eyebrow is pierced NECK: trachea midline, RESPIRATORY: clear to auscultation bilaterally, no crackles, rales or wheezes, normal respiratory effort CARDIOVASCULAR: regular rate and rhythm, S1 and 2 heard without murmurs, gallops or rubs, no JVD, no peripheral edema CHEST: inspection of chest was normal GASTROINTESTINAL: soft, nontender, ND, no guarding MUSCULOSKELETAL: strength 5/5 throughout, head is normocephalic and atraumatic, she was able to sit up in bed independently. SKIN: warm and dry, no rashes, +tattooes. NEUROLOGIC: CN 2-12 grossly intact, no sensory deficit, normal cognition, normal speech, no tremor, no gross focal deficits. PSYCHIATRIC: alert cooperative and oriented to person, place and time. Euthymic mood, makes good eye contact, language grossly intact, recent and remote memory grossly intact. Speaks slowly and somewhat lethargic. Easily irritated with questioning Results & Data Results & Data ([facility]) Vital Signs (Past 12 Hours) Vital Signs Temp Pulse Pulse Resp BP Pulse Ox O2 Del Method 03/23/22 11:16 36.8 C 78 18 104/61 100 Room Air 03/23/22 07:29 36.9 C 79 18 107/64 99 Room Air 03/23/22 07:19 64 03/23/22 03:24 36.9 C 76 18 109/63 98 Room Air Laboratory Results Short CBC 03/23/22 Range/Units 06:01 WBC 5.90 (4.8-10.8) K/ul Hgb 11.2 L (12.0-16.0) g/dl Hct 32.0 L (34.1-44.9) % Plt Count 353 (130-400) K/uL BMP 03/22/22 03/23/22 20:47 06:01 Sodium 140 Potassium 3.7 D 3.0 L Chloride 111 H Carbon Dioxide 20 L BUN 8 Creatinine 1.09 Glucose 76 Calcium 8.6 Urine 03/23/22 Range/Units 03:05 Urine Color Yellow Urine Appearance Clear (Clear) Urine pH 6.0 (4.5-7.5) Ur Specific Brent 1.015 (1.000-1.030) Urine Protein Negative (Negative) Urine Glucose (UA) Negative (Negative) Medications Administered Current Inpatient Medications Acetaminophen (Acetaminophen 325 Mg Tab) 650 mg PO Q4H PRN PRN Reason: Pain or Fever Stop: 04/21/22 16:45 Al Hydrox/Mg Hydrox/Simethicone (Aluminum/Magnesium Susp 30 Ml Udc) 15 ml PO Q4H PRN PRN Reason: Dyspepsia Stop: 04/21/22 16:45 Alprazolam (Alprazolam 0.5 Mg Tablet) 0.5 mg PO HS PRN PRN Reason: Anxiety Stop: 04/21/22 16:45 Last Admin: 03/22/22 20:48 Dose: 0.5 mg Fluticasone Propionate (Fluticasone Propionate Na Spr 16 Gm Btl) 2 sprays NA DAILY MAXIM Stop: 04/22/22 08:59 Last Admin: 03/23/22 09:10 Dose: 2 sprays Gabapentin (Gabapentin 100 Mg Cap) 100 mg PO QAM MAXIM Stop: 04/22/22 08:59 Last Admin: 03/23/22 09:55 Dose: 100 mg Gabapentin (Gabapentin 300 Mg Cap) 300 mg PO HS MAXIM Stop: 04/21/22 20:59 Last Admin: 03/22/22 20:21 Dose: 300 mg Heparin Sodium (Porcine) (Heparin Sod 5,000 Unit/0.5 Ml Vial) 5,000 units SQ Q12 MAXIM Stop: 04/21/22 20:59 Last Admin: 03/23/22 09:10 Dose: 5,000 units Metronidazole (Flagyl) 500 mg in 100 mls @ 100 mls/hr IV Q8H [facility] Stop: 04/01/22 16:45 Last Infusion: 03/23/22 13:07 Dose: Infused Ciprofloxacin (Cipro / D5w) 400 mg in 200 mls @ 100 mls/hr IV Q12H [facility]; Protocol Stop: 04/02/22 16:59 Sodium Chloride (Nss 1000ml) 1,000 mls @ 70 mls/hr IV .[id number] [facility] Stop: 03/24/22 02:32 Last Admin: 03/23/22 13:44 Dose: 70 mls/hr Lisinopril (Lisinopril 2.5 Mg Tab) 2.5 mg PO [facility] Stop: 04/21/22 20:59 Last Admin: 03/22/22 20:49 Dose: 2.5 mg Magnesium Hydroxide (Magnesium Hydroxide Susp 30 Ml Udc) 30 ml PO Q12H PRN PRN Reason: Constipation Stop: 04/21/22 16:45 Miscellaneous (Remove Nicoderm Patch) 1 each N/A DAILY@0859 [facility] Stop: 04/21/22 16:29 Last Admin: 03/23/22 09:13 Dose: Not Given Nicotine (Nicotine 14 Mg/24 Hr Patch) 14 mg TD QAM [facility] Stop: 04/21/22 16:45 Last Admin: 03/23/22 09:13 Dose: Not Given Polyethylene Glycol (Polyethylene (Miralax) 17 Gm Pack) 17 gm PO DAILY PRN PRN Reason: Constipation Stop: 04/21/22 16:45 Potassium Chloride (Potassium Chloride Crtab 20 Meq Tabcr) 40 meq PO Q6H [facility] Stop: 03/23/22 17:31 Last Admin: 03/23/22 12:01 Dose: 40 meq Promethazine HCl (Promethazine Hcl 25 Mg Tab) 25 mg PO Q6H PRN PRN Reason: Nausea And Vomiting Stop: 04/22/22 13:32 Last Admin: 03/23/22 13:45 Dose: 25 mg Topiramate (Topiramate 25 Mg Tab) 25 mg PO HS [facility] Stop: 04/21/22 20:59 Last Admin: 03/22/22 20:20 Dose: 25 mg Venlafaxine HCl (Venlafaxine Hcl Xr 150 Mg Capxr) 150 mg PO DAILY [facility] Stop: 04/22/22 08:59 Last Admin: 03/23/22 09:10 Dose: 150 mg
[2022-03-23] MEDS: CIPROFLOXACIN / D5W 400 MG/200 ML BAG IV SCH (17:05)
[2022-03-23] MEDS: GABAPENTIN 300 MG CAP PO SCH (20:17)
[2022-03-23] MEDS: TOPIRAMATE 25 MG TAB PO SCH (20:17)
[2022-03-23] MEDS: lisinopril 2.5 MG TAB PO SCH (20:17)
[2022-03-23] MEDS: ALPRAZolam 0.5 MG TABLET PO PRN (20:26)
[2022-03-24] MEDS: metroNIDAZOLE 500 MG/100 ML BAG IV SCH ×3 (03:00→20:09)
[2022-03-24] MEDS: CIPROFLOXACIN / D5W 400 MG/200 ML BAG IV SCH ×2 (04:07→17:01)
[2022-03-24 06:53] LABS: Hemoglobin 10.9 g/dl (12.0-16.0); Mean Corpuscular Hemoglobin 28.8 pg (25.0-34.0); Mean Corpuscular Hgb Conc 35.2 g/dL (32.0-36.0); Mean Platelet Volume 8.9 fL (9.4-12.3); Platelet Count 330 K/uL (130-400); RDW Coefficient of Variation 13.5 % (11.5-14.5); RDW Standard Deviation 40.5 fL (36.4-46.3); Red Blood Count 3.78 M/uL (3.93-5.22); White Blood Count 4.76 K/ul (4.8-10.8)
[2022-03-24 08:03] LABS: BUN Creatinine Ratio 6.9 (10-20); Calcium 8.4 mg/dl (8.5-10.1); Creatinine Clr Calc Pharmacy 49.6 ml/min; Est GFR (African American) 67.2 ml/min; Magnesium 1.6 mg/dl (1.7-2.4); Phosphorus 1.1 mg/dl (2.5-4.9); Potassium 3.6 mmol/L (3.5-5.1)
[2022-03-24] MEDS ORDERED: POTASSIUM PHOS 3 MMOL/1 ML INFUSION IV STA (08:10)
[2022-03-24] MEDS ORDERED: POTASSIUM CHLORIDE CRTAB 20 MEQ TABCR PO STA (08:14)
[2022-03-24] MEDS: NICOTINE 14 MG/24 HR PATCH TD SCH (08:21)
[2022-03-24] MEDS: VENLAFAXINE HCL XR 150 MG CAPXR PO SCH (08:21)
[2022-03-24] MEDS: GABAPENTIN 100 MG CAP PO SCH (08:21)
[2022-03-24] MEDS: HEPARIN SOD 5,000 UNIT/0.5 ML VIAL SQ SCH ×2 (08:21→20:10)
[2022-03-24] MEDS: FLUTICASONE PROPIONATE NA SPR 16 GM BTL SCH (08:21)
[2022-03-24] MEDS: MAGNESIUM SULFATE / D5W 1 GM/100 ML BAG IV SCH ×2 (08:25→10:05)
[2022-03-24] MEDS ORDERED: POTASSIUM PHOSPHATE 30 MMOL in SODIUM CHLORIDE 0.9% 500 ML IV ONE (08:30)
[2022-03-24] MEDS: POT PHOSPHATE MONOBASIC W/ SOD TAB PO SCH ×4 (09:15→20:10)
[2022-03-24] MEDS ORDERED: DICYCLOMINE HCL 10 MG CAP PO PRN (13:21)
--- NOTE | 2022-03-24 13:26 | Gastrointestinal Consultation ---
Date of Consultation March 24, 2022 Assessment & Plan (1) Colitis: Patient is a 66 years old female currently admitted with symptoms of abdominal pain, nausea, diarrhea. Previously suspected to have diverticulitis, was receiving outpatient treatment with p.o. Flagyl which she could not tolerate. Repeat CT of the abdomen and pelvis showed signs of nonspecific colitis, decreased abdominal wall thickening compared to CT scan 1 week ago. Stool culture and C. difficile were negative. Last colonoscopy in 2018. - Diet as tolerated - Dicyclomine 10mg BID prn cramping/urgency - Fiber 1 packet daily - Cipro/Flagyl IV antibx - Plan for outpt colonoscopy eval in 4-6 week's time - Electrolyte repletion per primary team History of Present Illness Reason for Consultation: Pancolitis, diarrhea, poor p.o. intake. Requesting Physician: Dr. Uday Hall Attending Physician: Dr. Minnie Piedra History of Present Illness Patient is a 66 years old female who is currently admitted with symptoms of diffuse abdominal pain, nausea without vomiting, diarrhea wo rectal bleeding weakness. States that symptoms started about a couple weeks ago. Saw her PCP, diagnosed with diverticulitis and started on Flagyl p.o. Patient states that she is unable to tolerate antibiotics due to nausea and texture as well as size of the pill. Her admission CT of the abdomen pelvis showed signs of nonspecific colitis, with decreased thickening of the bowel huang compared to CT scan that was done about a week ago. Labs indicate no signs of leukocytosis, no renal injury, does have low calcium, phosphorus and magnesium levels. Stool Cdiff, cx negative. Patient's last colonoscopy was done in 2018 with signs of melanosis coli, diverticulosis and hemorrhoids. Patient denies family history is of IBD, colorectal cancer. She also denies any personal history is of abdominal surgeries Allergies Allergy/AdvReac Type Severity Reaction Status Date / Time Iodinated Contrast Media Allergy Severe ANAPHYLAXIS Verified 03/22/22 12:54 Home Medications Medication Instructions Recorded Confirmed Type gabapentin 300 mg capsule 300 mg PO HS #60 caps 03/14/19 03/22/22 History lisinopril 2.5 mg tablet 2.5 mg PO HS #90 tabs 03/14/19 03/22/22 History venlafaxine 150 mg 150 mg PO DAILY 03/14/19 03/22/22 History capsule,extended release 24 hr risperidone 0.5 mg tablet 0.5 mg PO DIRECTED PRN 05/22/19 03/22/22 History irritability alprazolam 0.5 mg tablet 0.5 mg PO HS PRN Anxiety 11/07/19 03/22/22 History albuterol sulfate 90 mcg/actuation 2 puff inhalation Q6H PRN Wheezing 11/09/19 03/22/22 History aerosol inhaler fluticasone propionate 50 2 spray intranasal DAILY 11/09/19 03/22/22 History mcg/actuation nasal spray,suspension (Flonase Allergy Relief) gabapentin 100 mg capsule 100 mg PO QAM 11/09/19 03/22/22 History (Neurontin) topiramate 25 mg tablet 25 mg PO HS 10/05/21 03/22/22 History Patient History Medical History Adverse reaction to contrast media Anxiety Anxiety and depression Arthritis Cervical disc disease Chronic back pain CKD (chronic kidney disease), stage III Colitis Depression GERD (gastroesophageal reflux disease) Hyperlipidemia Hypertension Psychosis PTSD (post-traumatic stress disorder) S/P colonoscopy Tobacco use Surgical History History of back surgery History of carpal tunnel surgery S/P cholecystectomy Social History Smoking Status: Heavy tobacco smoker Tobacco Type: Cigarettes Second Hand Exposure: No; Do You Dip or Chew Tobacco: No; Tobacco Cessation Education Requested by Patient: No Hx Alcohol Use: No Hx Substance Use: Yes Last Used Substance Other:: Over a month ago Substance Use Type Other:: Medical marijuana Preferred Language: Faroese Communication Ability: Effective Seismographer Required: No Current Living Situation: Spouse Feels Safe at Home: Yes Safety Concerns: Feels Safe At This Time Assistive Devices: None Review of Systems Review of Systems: All systems reviewed & are unremarkable except as noted in HPI & below Physical Exam Constitutional: WD/WN, vitals as above well groomed, cooperative and comfortable Eyes: PERRL, conjunctivae normal, anicteric sclerae ENMT: external ear and nose normal, oropharynx normal Respiratory: normal respiratory effort, lungs clear to auscultation Cardiovascular: RRR, no murmur, no edema Gastrointestinal (Abdomen): Soft, nontender, bowel sounds hypoactive Skin: no rashes, warm and dry no jaundice Psychiatric: A+Ox3, euthymic affect Lymphatic: no lymphedema Results & Data ([facility]) Vital Signs (Past 12 Hours) Vital Signs Temp Pulse Pulse Resp BP Pulse Ox 03/24/22 06:56 66 03/24/22 03:11 36.8 C 74 18 122/72 98
--- NOTE | 2022-03-24 14:45 | Hospitalist Progress Note ---
Date of Service March 24, 2022 Assessment & Plan (1) Abdominal pain, lower: (2) Generalized weakness: Plan (1) Colitis: #. Electrolytes abnormalities: Monitor and replete as appropriate. Plan: h/o IBS on Bentyl. 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 Nonspecific pancolitis seen on outpatient CT a/p and PO flagyl (unable to tolerate po flagyl) given without success. Repeat CT a/p at ED presentation reveals persistent nonspecific colitis w/ possible diarrheal state. Colonic wall thickening has mildly improved since exam March 16, 2022. Colonic diverticulosis is noted without evidence for acute diverticulitis. Admitting Stool PCR was negative for infection. Patient reports tolerating diet better, decreasing her nausea and belly pain, had multiple diarrheal episodes with significant electrolyte abnormalities in a.m., electrolytes being repleted. Continue with current antibiotics and antiemetics. GI evaluated, dicyclomine/fiber/Cipro and Flagyl IV/outpatient colonoscopy in 4 to 6 weeks time. Generalized weakness: Plan: Likely a result of poor PO intake over the last month. Hypoglycemic in the ER. Nutrition consult. PT/OT. Nausea: Plan: possibly related to colitis, however, marijuana use or medications may also be contributing. Chronic back pain: Plan: chronic pain managed with marijuana and home medications. No new changes in pain reported.. Anxiety and depression: Plan: significant h/o depression. Continues on topiramate, risperidone as needed for irritability, gabapentin and Xanax. Tobacco use: Plan: smokes both marijuana and cigarettes and was counselled against them, doesn't seem much interested. Smoking cessation strongly advised. DVT prophylaxis: Plan: heparin Full Code Dispo-PT/OT when tolerating PO, electrolytes abn stable. Admission and Anticipated Discharge Date Admission Date: March 22, 2022 Subjective Patient seen and examined at bedside for follow-up of colitis and generalized weakness. Patient was lying in bed, on room air, NAD, reports large watery diarrheal movements x2 during the night and 1 in the morning, electrolyte abnormalities significant in a.m., being repleted, reports tolerating p.o. diet with no belly pain, reports improving belly pain, denies headache or dizziness or chest pain or sore throat, reports cough at baseline, denies pain or burning with passing urine, reports feeling better. Physical Exam Physical Exam: GENERAL: Alert and oriented x3. NAD, on RA. HEENT: No pallor, no icterus. Pupils equal, round and reactive to light. Oral mucosa moist. NECK: No JVD, no neck masses. HEART: S1 and S2 heard. Regular rate and rhythm. No murmur, no gallop. RESPIRATORY SYSTEM: Normal AP diameter. No accessory muscle use. No wheezing, no crackles. ABDOMEN: Soft, bowel sounds present, mild diffuse tender (improved per pt), no distention. CENTRAL NERVOUS SYSTEM: No facial droop. Speech is clear. Obeys simple commands. Moves extremities. EXTREMITIES: No edema, no erythema seen. Results & Data Results & Data ([facility]) Vital Signs (Past 12 Hours) Vital Signs Temp Pulse Pulse Resp BP Pulse Ox O2 Del Method 03/24/22 11:30 36.6 C 71 18 135/70 100 Room Air 03/24/22 06:56 66 03/24/22 03:11 36.8 C 74 18 122/72 98
[2022-03-24] MEDS: GABAPENTIN 300 MG CAP PO SCH (20:09)
[2022-03-24] MEDS: TOPIRAMATE 25 MG TAB PO SCH (20:09)
[2022-03-24] MEDS: lisinopril 2.5 MG TAB PO SCH (20:09)
[2022-03-24] MEDS: ALPRAZolam 0.5 MG TABLET PO PRN (20:21)
[2022-03-25] MEDS: metroNIDAZOLE 500 MG/100 ML BAG IV SCH ×3 (03:55→20:57)
[2022-03-25] MEDS: CIPROFLOXACIN / D5W 400 MG/200 ML BAG IV SCH ×2 (04:55→17:21)
[2022-03-25 05:55] LABS: Hemoglobin 11.1 g/dl (12.0-16.0); Mean Corpuscular Hemoglobin 28.5 pg (25.0-34.0); Mean Corpuscular Hgb Conc 34.7 g/dL (32.0-36.0); Mean Corpuscular Volume 82.1 fL (80.0-100.0); Mean Platelet Volume 9.1 fL (9.4-12.3); Platelet Count 335 K/uL (130-400); RDW Coefficient of Variation 13.9 % (11.5-14.5); RDW Standard Deviation 41.5 fL (36.4-46.3); White Blood Count 5.17 K/ul (4.8-10.8)
[2022-03-25 06:31] LABS: BUN Creatinine Ratio 6.8 (10-20); Calcium 8.3 mg/dl (8.5-10.1); Creatinine Clr Calc Pharmacy 56.9 ml/min; Est GFR (African American) 79.4 ml/min; Est GFR (Non-African American) 68.5 ml/min; Magnesium 1.9 mg/dl (1.7-2.4); Phosphorus 2.9 mg/dl (2.5-4.9); Potassium 3.7 mmol/L (3.5-5.1)
[2022-03-25] MEDS: FLUTICASONE PROPIONATE NA SPR 16 GM BTL SCH (07:56)
[2022-03-25] MEDS: VENLAFAXINE HCL XR 150 MG CAPXR PO SCH (07:57)
[2022-03-25] MEDS: HEPARIN SOD 5,000 UNIT/0.5 ML VIAL SQ SCH ×2 (07:57→21:00)
[2022-03-25] MEDS: POT PHOSPHATE MONOBASIC W/ SOD TAB PO SCH ×4 (07:58→20:59)
[2022-03-25] MEDS: GABAPENTIN 100 MG CAP PO SCH (07:58)
[2022-03-25] MEDS: NICOTINE 14 MG/24 HR PATCH TD SCH (07:58)
[2022-03-25] MEDS: PSYLLIUM or GUAR GUM FIBER POWDER PACKET PO SCH (07:58)
--- NOTE | 2022-03-25 08:41 | Gastroenterology Progress Note ---
Date of Service March 25, 2022 Assessment & Plan (1) Colitis: Plan: Patient is a 66 years old female currently admitted with symptoms of abdominal pain, nausea, diarrhea. Previously suspected to have diverticulitis, was receiving outpatient treatment with p.o. Flagyl which she could not tolerate. Repeat CT of the abdomen and pelvis showed signs of nonspecific colitis, decreased abdominal wall thickening compared to CT scan 1 week ago. Stool culture and C. difficile were negative. Last colonoscopy in 2018. Clinically improving, she would like to go home today - Diet as tolerated - Dicyclomine 10mg BID prn cramping/urgency - Fiber 1 packet daily - Cipro/Flagyl IV antibx - Plan for outpt colonoscopy eval in 4-6 week's time - Electrolyte repletion per primary team - GI to sign off; pls recall prn Admission and Anticipated Discharge Date Admission Date: March 22, 2022 Subjective Pt reports having loose stools overnight. No rectal bleeding. Less abd pain, no n/v. Ate regular breakfast today wo increased pain, n/v. Hasn't had BM today. Review of Systems Review of Systems: All systems reviewed & are unremarkable except as noted in HPI & below Physical Exam Constitutional: WD/WN, vitals as above well groomed, cooperative and comfortable Eyes: PERRL, conjunctivae normal, anicteric sclerae ENMT: external ear and nose normal, oropharynx normal Respiratory: normal respiratory effort, lungs clear to auscultation Cardiovascular: RRR, no murmur, no edema Gastrointestinal (Abdomen): Mild TTP LLQ area, otherwise no guarding, soft, BS present Skin: no rashes, warm and dry no jaundice Psychiatric: A+Ox3, euthymic affect Lymphatic: no lymphedema Results & Data ([facility]) Vital Signs (Past 12 Hours) Vital Signs Temp Pulse Pulse Resp BP Pulse Ox O2 Del Method 03/25/22 07:52 36.6 C 68 19 135/61 100 Room Air 03/25/22 07:06 65 03/25/22 04:18 Room Air 03/25/22 03:52 36.8 C 58 L 18 129/81 94 Room Air 03/25/22 03:09 36.6 C 64 16 140/76 99 Room Air 03/24/22 22:15 71 03/24/22 22:57 36.7 C 74 19 110/72 97 Room Air
--- NOTE | 2022-03-25 10:37 | Hospitalist Progress Note ---
Date of Service March 25, 2022 Assessment & Plan (1) Abdominal pain, lower: (2) Generalized weakness: Plan (1) Colitis: h/o IBS on Bentyl. 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 Nonspecific pancolitis seen on outpatient CT a/p and PO flagyl (unable to tolerate po flagyl) given without success. Repeat CT a/p at ED presentation reveals persistent nonspecific colitis w/ possible diarrheal state. Colonic wall thickening has mildly improved since exam March 16, 2022. Colonic diverticulosis is noted without evidence for acute diverticulitis. Admitting Stool PCR was negative for infection. Patient reports improving symptoms Continue IV cipro and flagyl GI recs noted Continue dicyclomine prn GI added fiber Outpatient colonoscopy in 4 to 6 weeks time. Generalized weakness: Likely a result of poor PO intake over the last month. Reports improvement and increased activity Electrolytes abnormalities: Hypokalemia, hypomagnesemia and hypophosphatemia Due to diarrhea Continue to monitor and replete as appropriate Chronic back pain: Chronic pain managed with marijuana and home medications. No new changes in pain reported.. Anxiety and depression: Significant h/o depression. Continues on topiramate, risperidone, gabapentin and Xanax prn. Tobacco use: Smokes both marijuana and cigarettes Smoking cessation counseling provided DVT prophylaxis: Heparin Full Code Dispo-patient stated she will like to go home once stable Admission and Anticipated Discharge Date Admission Date: March 22, 2022 Subjective Patient seen and examined. Reports lower abdominal pain, 3/10, not referred pain, dull, associated with nausea reports pain is improved compared to admission when it was severe. Reports diarrhea especially after eating. Denies any hematochezia or melena Denies any vomiting Denies chest pain, cough, shortness of breath Denies headache, dizziness Denies dysuria, frequency, urgency or hematuria Denies fevers or chills Physical Exam Constitutional: + well hydrated; no acute distress Eyes: PERRL, conjunctivae normal, anicteric sclerae ENMT: external ear and nose normal, oropharynx normal Respiratory: normal respiratory effort, lungs clear to auscultation Cardiovascular: Rate/Rhythm: regular rate and regular rhythm S1 S2 Gastrointestinal (Abdomen): Nondistended, soft, mild lower abd tenderness, BS + Musculoskeletal: no cyanosis or clubbing, extremities motor strength 5/5 Neurologic: PERRL, EOMI, accommodation nl, no face palsy, no dysarthria Results & Data Results & Data ([facility]) Vital Signs (Past 12 Hours) Vital Signs Temp Pulse Pulse Resp BP Pulse Ox O2 Del Method 03/25/22 07:52 36.6 C 68 19 135/61 100 Room Air 03/25/22 07:06 65 03/25/22 04:18 Room Air 03/25/22 03:52 36.8 C 58 L 18 129/81 94 Room Air 03/25/22 03:09 36.6 C 64 16 140/76 99 Room Air 03/24/22 22:57 36.7 C 74 19 110/72 97 Room Air Laboratory Results Abnormal lab results 03/25/22 03/25/22 Range/Units 05:31 05:31 RBC 3.90 L (3.93-5.22) M/uL Hgb 11.1 L (12.0-16.0) g/dl Hct 32.0 L (34.1-44.9) % MPV 9.1 L (9.4-12.3) fL Chloride 112 H (98-107) mmol/L BUN/Creatinine Ratio 6.8 L (10-20) Calcium 8.3 L (8.5-10.1) mg/dl
[2022-03-25] MEDS: GABAPENTIN 300 MG CAP PO SCH (20:58)
[2022-03-25] MEDS: TOPIRAMATE 25 MG TAB PO SCH (20:59)
[2022-03-25] MEDS: lisinopril 2.5 MG TAB PO SCH (20:59)
[2022-03-25] MEDS: ALPRAZolam 0.5 MG TABLET PO PRN (20:59)
[2022-03-26] MEDS: metroNIDAZOLE 500 MG/100 ML BAG IV SCH (03:10)
[2022-03-26] MEDS: CIPROFLOXACIN / D5W 400 MG/200 ML BAG IV SCH (04:09)
[2022-03-26 07:24] LABS: Hematocrit (blood only) 33.2 % (34.1-44.9); Hemoglobin 11.3 g/dl (12.0-16.0); Mean Corpuscular Hemoglobin 28.4 pg (25.0-34.0); Mean Corpuscular Volume 83.4 fL (80.0-100.0); Mean Platelet Volume 9.1 fL (9.4-12.3); Platelet Count 328 K/uL (130-400); RDW Coefficient of Variation 14.1 % (11.5-14.5); RDW Standard Deviation 43.1 fL (36.4-46.3); Red Blood Count 3.98 M/uL (3.93-5.22); White Blood Count 5.89 K/ul (4.8-10.8)
[2022-03-26 07:42] LABS: BUN Creatinine Ratio 5.6 (10-20); Calcium 8.6 mg/dl (8.5-10.1); Creatinine Clr Calc Pharmacy 49.2 ml/min; Est GFR (African American) 78.3 ml/min; Est GFR (Non-African American) 67.5 ml/min; Magnesium 1.7 mg/dl (1.7-2.4); Phosphorus 3.4 mg/dl (2.5-4.9); Potassium 3.3 mmol/L (3.5-5.1)
[2022-03-26] MEDS ORDERED: POTASSIUM CHLORIDE CRTAB 20 MEQ TABCR PO STA (07:59)
[2022-03-26] MEDS: NICOTINE 14 MG/24 HR PATCH TD SCH (08:33)
[2022-03-26] MEDS: PSYLLIUM or GUAR GUM FIBER POWDER PACKET PO SCH (08:33)
[2022-03-26] MEDS: FLUTICASONE PROPIONATE NA SPR 16 GM BTL SCH (08:33)
[2022-03-26] MEDS: VENLAFAXINE HCL XR 150 MG CAPXR PO SCH (08:34)
[2022-03-26] MEDS: GABAPENTIN 100 MG CAP PO SCH (08:34)
[2022-03-26] MEDS: HEPARIN SOD 5,000 UNIT/0.5 ML VIAL SQ SCH (08:34)
--- NOTE | 2022-03-26 12:07 | Discharge Summary ---
Date of Service March 26, 2022 Discharge Data Allergies Allergy/AdvReac Type Severity Reaction Status Date / Time Iodinated Contrast Media Allergy Severe ANAPHYLAXIS Verified 03/22/22 12:54 Consultations 03/22/22 12:53 ED Decision to Admit Stat 03/23/22 15:02 Consult Gastroenterology Routine Ordered Studies 03/22/22 10:19 CT abd pelvis wo con Stat Discharge Plan Discharge Items Patient Disposition: Home - Self-Care Reason For Visit: Weakness, abdominal pain Discharge Diagnosis: Colitis Activity: Resume your previous activity Non-emergency contact: Primary Care Provider Call non-emergency contact if: you have any medication questions Follow-up/Referrals: Umesh Gabriel DO [Primary Care Provider] - (Date & Time 03/29/2022 1:40 PM Provider Umesh Gabriel DO Department [facility] ) Diet: Heart Healthy Addtl Attending Provider Instructions: Mrs Dennis You came to the hospital complaining of weakness, abdominal pain and diarrhea. You had a CT scan which showed colitis. You were evaluated by Rn First Assist and started on antibiotics. Your symptoms are improving. You are being discharged to complete 2 more days of antibiotics. Please take the ciprofloxacin ordered for 2 days. Please take the metronidazole you have at home as prescribed for 2 more days and stop. Please use the dicyclomine as needed for abdominal cramps. Please ensure follow up with your Primary Doctor who may do blood work to monitor your electrolytes. Please ensure follow up with Gastroenterology for colonoscopy in 4-6 weeks. Pending Studies at Discharge: No Stand-Alone Forms: My Hoard, Smoking Cessation Medications and DC Order Prescriptions: New dicyclomine 10 mg Capsule 10 mg PO BID PRN (Reason: abdominal cramps) Qty: 14 0RF ciprofloxacin HCl 500 mg tablet 500 mg PO BID 2 Days Qty: 4 0RF Continued lisinopril 2.5 mg tablet 2.5 mg PO HS Qty: 90 gabapentin 300 mg capsule 300 mg PO HS Qty: 60 venlafaxine 150 mg capsule,extended release 24hr 150 mg PO DAILY topiramate 25 mg tablet 25 mg PO HS risperidone 0.5 mg tablet 0.5 mg PO DIRECTED PRN (Reason: irritability) Label Comments: unsure if pt is taking. was recently filled per rx history. (08/30/19) alprazolam 0.5 mg tablet 0.5 mg PO HS PRN (Reason: Anxiety) gabapentin [Neurontin] 100 mg capsule 100 mg PO QAM albuterol sulfate 90 mcg/actuation Hfa Aerosol Inhaler 2 puff INHALATION Q6H PRN (Reason: Wheezing) fluticasone propionate [Flonase Allergy Relief] 50 mcg/actuation spray,suspension 2 spray INTRANASAL DAILY metronidazole 500 mg tablet 500 mg PO TID 2 Days Qty: 0 0RF Discharge Orders: Discharge Order (Routine); Ordered 03/26/22 Ordered By: Shyla Soliman Admission Data Admit Date/Time: 03/22/22 12:50 Attending Provider: Shyla Soliman I. Admit Provider: Vasiliy Sharma Primary Care Provider: Umesh Gabriel Other Providers: Vasiliy Sharma ; Minnie Piedra ; Uday Hall
--- NOTE | 2022-03-26 12:08 | Discharge Summary ---
Discharge Summary Date of Service March 26, 2022 Notes For Next Care Provider Monitor resolution of symptoms Check BMP on follow up for potassium/electrolytes Needs follow up with GI for outpatient colonoscopy Medication Changes From Visit To take home metronidazole and newly prescribed ciprofloxacin for 2 more days to complete treatment Dicyclomine prn for abdominal cramps Admission HPI Per Admitting Provider Ms. Dennis is a 66 year old that presented to the [facility] with abdominal pain, nausea, and weakness. Abdominal/pelvic CT done with results showing nonspecific colitis. Patient stated that her appetite has been down overall as well. She was seen as an outpatient by her PCP on 03/16; and she was diagnosed with diverticulosis by exam and started on Metronidazole PO. She was unable to tolerate the antibiotic due to the texture and size of the pill. Additional PMH includes: anxiety/depression, HTN, IBS, LEE, chronic back pain and chronic neur opathy. She describes her stools being abnormal to her for the past month or so. She describes them as being thin, liquid and mucus in texture. She does deny hematochezia. Patient denies dizziness, SOB, CP, palpitations, rashes, dysuria and constipation. Patient was lying in her hospital bed, accompanied by her daughter, Livia, in no apparent distress, aside from being anxious. Patient is receptive to admission for rehydration, awaiting stool cultures and electrolyte replacement. Please see A/P for further details. Admission Exam Per Admitting Provider Neuro: AAOx4, PERRLA, no aphagia, memory changes, CNII-XII grossly intact HEENT: head normocephalic, moist mucus membranes CV: S1/S2, (-) M/G/R, (-) edema, cap refill < 3 seconds Resp: Lungs CTA in all perkins. On RA GI: Abdomen S/NT/ND, Ax4 bowel sounds, (-) CVA tenderness Musculoskeletal: 5/5 B/L UE strength, 5/5 B/L LE strength. No gait disturbance Skin: (-) rashes , (-) erythema. Psych: euthymic mood Principal Dx & Hospital Course #1 = Principal Diagnosis (1) Abdominal pain, lower: (2) Generalized weakness: Plan Colitis: . 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 Nonspecific pancolitis seen on outpatient CT a/p and PO flagyl outpatient given without success. Repeat CT a/p at ED presentation reveals persistent nonspecific colitis w/ possible diarrheal state. Colonic wall thickening has mildly improved since exam March 16, 2022. Colonic diverticulosis is noted without evidence for acute diverticulitis. Admitting Stool PCR was negative for infection. Patient was started on IV cipro and flagyl GI evaluated patient She was started on dicyclomine prn abd cramps Patient's symptoms improved. Abd pain resolved. Still reports occasional diarrhea but frequency much reduced Discharged on 2 more days of antibiotics to complete treatment. Outpatient colonoscopy in 4 to 6 weeks time. Generalized weakness: Likely a result of poor PO intake over the last month. Improved Electrolytes abnormalities: Hypokalemia, hypomagnesemia and hypophosphatemia Due to diarrhea Aggressively repleted. K is 3.3. Got more repletion prior to dc Phosp and Mag are 3.4 and 1.7 respectively PCP to check BMP and electrolytes on follow up on Tuesday Chronic back pain: Chronic pain managed with marijuana and home medications. No new changes in pain reported.. Anxiety and depression: Significant h/o depression. Continues on topiramate, risperidone, gabapentin and Xanax prn. Tobacco use: Smokes both marijuana and cigarettes Smoking cessation counseling provided Discharge Exam Constitutional + well hydrated; no acute distress Eyes PERRL, conjunctivae normal, anicteric sclerae ENMT external ear and nose normal, oropharynx normal Respiratory normal respiratory effort, lungs clear to auscultation Cardiovascular Rate/Rhythm: regular rate and regular rhythm S1 S2 Gastrointestinal (Abdomen) normal bowel sounds, soft, nontender, no hepatosplenomegaly Musculoskeletal no cyanosis or clubbing, extremities motor strength 5/5 Neurologic PERRL, EOMI, accommodation nl, no face palsy, no dysarthria Psychiatric A+Ox3, euthymic affect Updated Medication List Medication Instructions Recorded Confirmed Type gabapentin 300 mg capsule 300 mg PO HS #60 caps 03/14/19 03/22/22 History lisinopril 2.5 mg tablet 2.5 mg PO HS #90 tabs 03/14/19 03/22/22 History venlafaxine 150 mg 150 mg PO DAILY 03/14/19 03/22/22 History capsule,extended release 24 hr risperidone 0.5 mg tablet 0.5 mg PO DIRECTED PRN 05/22/19 03/22/22 History irritability alprazolam 0.5 mg tablet 0.5 mg PO HS PRN Anxiety 11/07/19 03/22/22 History albuterol sulfate 90 mcg/actuation 2 puff inhalation Q6H PRN Wheezing 11/09/19 03/22/22 History aerosol inhaler fluticasone propionate 50 2 spray intranasal DAILY 11/09/19 03/22/22 History mcg/actuation nasal spray,suspension (Flonase Allergy Relief) gabapentin 100 mg capsule 100 mg PO QAM 11/09/19 03/22/22 History (Neurontin) topiramate 25 mg tablet 25 mg PO HS 10/05/21 03/22/22 History ciprofloxacin HCl 500 mg tablet 500 mg PO BID 2 days #4 tabs 03/26/22 Rx dicyclomine 10 mg capsule 10 mg PO BID PRN abdominal cramps 03/26/22 Rx #14 caps metronidazole 500 mg tablet 500 mg PO TID 2 days #0 tabs 03/26/22 03/26/22 Rx Hospital Stay Data Consultations 03/22/22 12:53 ED Decision to Admit Stat 03/23/22 15:02 Consult Gastroenterology Routine Diagnostic Imagining Performed 03/22/22 10:19 CT abd pelvis wo con Stat Lung bases are unremarkable. No pneumatosis, free air or portal gas is identified. Evaluation of the abdomen and pelvis is suboptimal on this unenhanced exam. There is probable hepatic steatosis. There is no biliary ductal dilatation status post cholecystectomy. 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 There is no hydronephrosis. Oral contrast from prior CT is present within the appendix. No evidence for acute appendicitis. The colon is recommended mildly fluid-filled. There is subtle adjacent stranding. Colonic wall thickening has mildly improved since exam March 16, 2022. Colonic diverticulosis is noted without evidence for acute diverticulitis. There is no fluid collection is suggest an abscess. There is no ascites. Bone island within the left iliac bone is incidentally noted. IMPRESSION: 1. Findings consistent with a persistent nonspecific colitis with possible diarrheal state. Colonic wall thickening slightly decreased since prior CT. 2. Colonic diverticulosis without evidence for acute diverticulitis. 3. No evidence for acute appendicitis. Pending Results Patient Have Any Pending Studies at Discharge: No Discharge Instructions Given to Patient (Per Discharging Provider) Mrs Dennis You came to the hospital complaining of weakness, abdominal pain and diarrhea. You had a CT scan which showed colitis. You were evaluated by Rn Examiner and started on antibiotics. Your symptoms are improving. You are being discharged to complete 2 more days of antibiotics. Please take the ciprofloxacin ordered for 2 days. Please take the metronidazole you have at home as prescribed for 2 more days and stop. Please use the dicyclomine as needed for abdominal cramps. Please ensure follow up with your Primary Doctor who may do blood work to monitor your electrolytes. Please ensure follow up with Gastroenterology for colonoscopy in 4-6 weeks. Total Time Total Time Spent Total Time Spent (In Minutes): 45 Total Time Includes: Examination of the Patient, Discharge Planning, Medication Reconciliation and Communication With Other Providers
== END 2022-03-26 13:25 | disposition home or self-care (01) ==
LOC: ED 09:12 → INTOOBSV 12:50 → SUATTDRO 12:50 → 2N 12:50
DX: K52.9 Noninfective gastroenteritis and colitis, unspecified; R19.7 Diarrhea, unspecified; F17.210 Nicotine dependence, cigarettes, uncomplicated; Z91.041 Radiographic dye allergy status; Z79.899 Other long term (current) drug therapy; R11.0 Nausea